=== PATIENT | female | born 1970 | race Caucasian/White ===

== ENCOUNTER → 2018-10-16 | Outpatient (CLI) | payer OTHER ==
[2015-09-25 11:00] VITALS: BP 120/70
[~2018-10-16] MED LIST: ALPR0.254 PO; BUPR300T4 PO; CYCL10TA2 PO; DOCU-109 PO; HYDR-2765 PO; IBUP-1060 PO; LORA1TAB PO; MULT1CAP15 PO; NORE-81 PO; ONDA4TAB11 PO; OXYC-411 PO; OXYC1TAB15 PO; SUMA50TA3 PO; TRAZ-85 PO
--- NOTE | 2018-10-16 10:28 | KCIC ---
MRI Lumbar Spine without contrast History: Low back pain, right lower extremity weakness, symptoms since July 2018 Technique: Multiplanar, multi sequential noncontrast MR imaging was performed of the lumbar spine. Comparison: September 07, 2015 Findings: There is again rudimentary intervertebral disc space at what is considered S1-S2 with the most inferior fully formed intervertebral disc space considered L5-S1 for this report. There is again mild degenerative disc disease at L4-5 and mild disc desiccation L5-S1 and L3-4 and very minimally at L2-3 unchanged. There is again posterior annular tear L5-S1. Conus terminates at L1. There is no significant marrow edema. Lumbar vertebral body stature and AP alignment are maintained. L2-L3: Spinal canal and neural foramina are adequate. L3-L4: There is again mild facet degenerative change. There is mild prominence of posterior epidural fat. There is again minimal disc osteophyte complex and bulge, near the descending right L4 nerve root without significant displacement, very mild narrowing of the far lateral recesses greater on the right. There is minimal narrowing of the inferior right neural foramen by bulge, left neural foramen adequate. L4-L5: There is again mild buckling of the ligamentum flavum. There is again minimal disc osteophyte complex and bulge. There is mild narrowing of the far lateral recesses bilaterally. There is again mild narrowing of the right neural foramen, left neural foramen adequate. L5-S1: Previously seen protrusion is somewhat more prominent with increased indentation upon the ventral thecal sac greater in the right lateral recess, contact of the descending right S1 nerve root and increased [id number] right lateral recess stenosis. Protrusion in the right lateral recess is estimated about 4 to 5 mm AP by 6 mm CC by about 12 mm transverse. Neural foramina are overall adequate. Impression: 1. Previously seen protrusion at L5-S1 is more prominent with increased indentation upon the ventral thecal sac in the right lateral recess and contact of the descending right S1 nerve root. There is minimal narrowing of the far lateral recesses bilaterally at L4-5 and to lesser degree at L3-4. There is again mild degenerative disc disease greatest at what is considered L4-5. Electronically signed by: Yao Bishop MD (10/16/2018 10:24 AM) [facility]
== END | disposition home or self-care (01) ==
LOC: KCIC MRI 09:23
PROVIDERS: ATTEND Internal Medicine
DX: M51.36 Other intervertebral disc degeneration, lumbar region (principal); M51.37 Other intervertebral disc degeneration, lumbosacral region; M48.07 Spinal stenosis, lumbosacral region; M25.78 Osteophyte, vertebrae
CPT/HCPCS: 72148

== ENCOUNTER → 2018-11-19 | Outpatient (CLI) | payer OTHER ==
[2015-09-25 11:00] VITALS: BP 120/70
[~2018-11-19] MED LIST changes: +AMIT50TA PO; +CETI10TA22 PO; +METH-38 PO; +MIRA50TA PO; +NAPR220C4 PO; +PRED2.5T PO; +PROP40TA PO; +RANI150T2 PO
[2018-11-19 16:38] LABS: BASO # 0.1 x10^3/uL (0.0-0.2); BASO % 1 % (0-3); EOS # 0.3 x10^3/uL (0.0-0.7); EOS % 5 % (0-3); HEMATOCRIT 38.9 % (36.0-47.0); LYMPH # 1.5 x10^3/uL (1.0-4.8); LYMPH % 24 % (24-48); MEAN CORPUSCULAR HEMOGLOBIN 30 pg (25-35); MEAN CORPUSCULAR HGB CONC 33 g/dL (31-37); MEAN CORPUSCULAR VOLUME 91 fL (79-100); MONO # 0.6 x10^3/uL (0.0-1.1); MONO % 10 % (0-9); NEUT # 3.8 x10^3uL (1.8-7.7); NEUT % 61 % (31-73); PLATELET COUNT 280 x10^3/uL (140-400); RED BLOOD COUNT 4.28 x10^6/uL (3.50-5.40); RED CELL DISTRIBUTION WIDTH 14.3 % (11.5-14.5); WHITE BLOOD COUNT 6.2 x10^3/uL (4.0-11.0)
[2018-11-19 16:59] LABS: ALBUMIN 3.7 g/dL (3.4-5.0); ALBUMIN/GLOBULIN RATIO 1.1 (1.0-1.7); CALCIUM 9.1 mg/dL (8.5-10.1); CREATININE 0.9 mg/dL (0.6-1.0); GFR 67.1; POTASSIUM 4.4 mmol/L (3.5-5.1); TOTAL BILIRUBIN 0.2 mg/dL (0.2-1.0); TOTAL PROTEIN 7.1 g/dL (6.4-8.2)
== END | disposition home or self-care (01) ==
LOC: SURGPAT 13:40
PROVIDERS: ATTEND Neurological Surgery
DX: Z01.818 Encounter for other preprocedural examination (principal); M51.16 Intervertebral disc disorders with radiculopathy, lumbar region
CPT/HCPCS: 36415; 80053; 85025; 87641

== ENCOUNTER 2018-11-29 07:12 | Day surgery (SDC) | payer OTHER ==
[~2018-11-29] VITALS: Ht 170.2 cm; Wt 73.5 kg
[~2018-11-29 07:12] MED LIST changes: +BACITRACIN 50,000 UNIT in IV NORMAL SALINE 1000ML BAG 1,000 ML IRR ONE; +BUPIVAC MPF-EPI 0.5%-1:200000 30 ML VIAL. ONE; +DEXAMETHASONE SOD PHOS 20 MG/5 ML VIAL. ONE; +GELATIN SPONGE SIZE 100. ONE; +HYDROmorphone 2 MG/ML VIAL IV PRN; +IV RINGERS,LACTATED 1000ML 1,000 ML IV SCH; +KETOROLAC 60 MG/2 ML INJ FOR OR. ONE; +LIDOCAINE 1% PF 2 ML VIAL. ID PRN; +LIDOCAINE 2% PF Vial for OR 5 ML VIAL. ONE; -METH-38 PO; +MORPHINE SULFATE 4 MG/ML VIAL. IV PRN; +ONDANSETRON PF 4 MG/2 ML VIAL. IV PRN; +ONDANSETRON PF 4 MG/2 ML VIAL. ONE; +PROCHLORPERAZINE 10 MG/2 ML VIAL. IV PRN; +PROPOFOL 20 ML IV ONE; +ROCURONIUM 50 MG/5 ML VIAL. ONE; +THROMBIN TOPICAL 20,000 UNIT SPRAY.SYRN KIT TP ONE; +VANCOMYCIN 1GM IVPB FOR OMNI 250 ML IV ONE; +fentaNYL PF VIAL 100 MCG/2 ML VIAL IV PRN
[2018-11-29] MEDS ORDERED: MIDAZOLAM HCL/PF 2 MG/2 ML VIAL. ONE (08:19)
[2018-11-29] MEDS ORDERED: fentaNYL PF VIAL 100 MCG/2 ML VIAL ONE ×3 (08:19→11:59)
[2018-11-29] MEDS ORDERED: PROPOFOL 50 ML IV ONE (08:21)
[2018-11-29] MEDS ORDERED: REMIFENTANIL 2 MG VIAL. IV ONE (08:21)
[2018-11-29] MEDS ORDERED: GLYCOPYRROLATE 1 MG/5 ML VIAL. ONE (09:43)
--- NOTE | 2018-11-29 09:47 | PREOP HP ---
DATE OF SERVICE: 11/29/2018 Aron Howard RN, dictating for Dr. Job Burleson. DATE OF SURGERY: 11/29/2018 HISTORY OF PRESENT ILLNESS: The patient is a pleasant 48-year-old who in 2014 underwent an ACDF and did well from that. Her current problem is low back pain and pain, which radiates into her right buttock, posterior lateral thigh and leg. This problem started in 07/2018. She said she twisted while standing and felt significant pop in her lower back and has had pain ever since. She describes a constant pain of 5/10. She has been taking prednisone for the last 2 months to help control it. She had a great deal of chiropractic treatment for this problem without significant benefit. PAST MEDICAL HISTORY: Headaches, migraines, head or neck injury, kidney stones, psychiatric care, tonsillitis. PAST SURGICAL HISTORY: Sinus surgery in 2002, tonsillectomy in 2002, bladder sling in 2013, tubal ligation in 2013, ACDF C6-C7 in 09/2015. FAMILY HISTORY: Cancer, CAD and migraine headaches. SOCIAL HISTORY: She is employed. . Exercises daily. Nonsmoker. Drinks alcohol 1-2 times per month. ALLERGIES: AMOXICILLIN. CURRENT MEDICATIONS: Percocet, Imitrex, bupropion, alprazolam, trazodone, multivitamin, Biofreeze and Tylenol. REVIEW OF SYSTEMS: A 12-point review of systems was obtained and is noncontributory except for that mentioned above. PHYSICAL EXAMINATION: NEUROSURGERY EXAMINATION: GENERAL APPEARANCE: Alert, pleasant, no acute distress. HEAD: Normocephalic, atraumatic. SKIN: Warm and dry. MUSCULOSKELETAL: Lumbar paraspinal muscle bulk is normal, restricted range of motion of the lumbar spine, [id number] tenderness of the lumbar spine with palpation, normal range of motion of the lower extremities bilaterally. EXTREMITIES: No clubbing, cyanosis or edema. NEUROLOGIC: Alert and oriented x 3, normal recent and remote memory, strength 4/5 in bilateral lower extremities, sensory was intact to light touch in bilateral lower extremities, reflexes were present and symmetric in lower extremities bilaterally, positive straight leg raising on the right that is relieved by Lasegue's maneuver, negative straight leg raise on the left, normal gait. IMAGING: Reviewed. I reviewed a lumbar MRI scan, it is from 10/2018. On that study, the previously seen disk protrusion at L5-S1 has become more prominent with increased compression of the thecal sac and the right lateral recess, displacing S1 nerve root. This was compared to 08/2015 study. ASSESSMENT: 1. Intervertebral disk disorders with radiculopathy, lumbosacral region. 2. Low back pain. PLAN: She has herniated lumbar disk with nerve root compression. I spoke with her about treatment options. She said that oral steroids temporarily helped her. She is pain becomes excruciating when she stops. She notes the chiropractic treatment has been of no benefit. She would like to have microsurgery. I did discuss the surgery with her. I spoke about the surgery and the risks involved. She understands. She would like to go ahead. We will make the arrangements. JOB BURLESON MD DR: BRIAN/troy JOB#: [id number] / [id number]
[2018-11-29] MEDS ORDERED: DESFLURANE 61 TO 120 MINUTES IH ONE (10:10)
--- NOTE | 2018-11-29 10:53 | DISCH ---
DISCHARGE INSTRUCTIONS Condition on Discharge Condition on Discharge: Stable Activity After Discharge Activity Instructions for Disc: Activity as tolerated, Avoid exertion Other activity instructions: no driving for a week Bathing Instructions: Shower-keep dressing dry Lifting Instructions after Dis: No heavy lifting, No pulling or pushing, Do not lift >10 pounds Driving Instructions after Dis: Do not drive Diet after Discharge Additional Diet Restrictions: Resume home diet Wound Incision Care Wound/Incision Care: Ice to area for comfort Other wound/incision instructi: may remove dressing in 48 hrs if dry then may shower, no soaking Contacting the after DC Call your doctor for: Concerns you may have Follow-Up Follow up with: Dr. Burleson's nurse in 2 weeks [phone] JESSENIA BURLESON MD Nov 29, 2018 10:53
--- NOTE | 2018-11-29 10:56 | OP ---
DATE OF SURGERY: 11/29/2018 PREOPERATIVE DIAGNOSIS: Herniated lumbar disc, L5-S1 right with right lumbar radiculopathy. POSTOPERATIVE DIAGNOSIS: Herniated lumbar disc, L5-S1 right with right lumbar radiculopathy. OPERATION PERFORMED: Hemilaminotomy and microdiscectomy L5-S1, right. The operation was done with EMG monitoring, fluoroscopy, microscopic dissection. SURGEON: Job Burleson M.D. RAILROAD WATCHMAN: YUNIER Newman assisted with the surgery. She assisted with the exposure, the microdiscectomy as well as the closure. OPERATIVE INDICATIONS: The patient is a very pleasant 48-year-old who developed intractable back and right leg pain, which worsened despite conservative measures. She received significant chiropractic treatment, which did not help. On imaging studies, there was a focal disc herniation L5-S1, which slowly had enlarged. She was very symptomatic and I recommended lumbar microsurgery. I spoke with her about the surgery, the risks, technique and expected postoperative course and she wished to go ahead. DESCRIPTION OF PROCEDURE: Following general endotracheal anesthesia, the patient was positioned prone on the Sundar table. Her lumbar region was prepped and draped in standard fashion. STEVE hose and AV impulse boots were applied for DVT prophylaxis. A microscope was draped. Fluoroscopy was draped and brought in the field. Monitoring was established. Vancomycin 1 gram was given prior to surgery. Using fluoroscopic guidance, a midline incision was made directly over the L5-S1 interspace. I dissected down through the skin and subcutaneous tissue, reflected the paraspinal muscles and placed a [place] micro disc retractor. I brought in the microscope and the remainder of the surgery was done with the microscope using microscopic technique. I used a high speed air drill and burred down a generous hemilaminotomy. I trimmed away thickened ligamentum flavum, exposed the dura and the exiting S1 root, which was lifted and compressed by a focal disc herniation. I gently the nerve from the underlying ligament and disc, retracted the nerve gently medially and incised the ligament and annulus with a #11 blade. I teased back and removed a very large fragment, which markedly decompressed the region. I then used pituitary rongeurs to enter the disc space and performed a generous discectomy to fully decompress the region. I explored carefully. There were no retained fragments. The S1 root was very free as was the dura. Hemostasis was excellent throughout. I irrigated copiously, removed the retractor after I explored and assured myself that we had an excellent discectomy and the root was free. I did obtain hemostasis in the muscle, irrigated again and then closed with absorbable sutures. The skin was closed with a 4-0 subcuticular stitch. The operation went very well and the patient awakened uneventfully. I was quite pleased with the surgery. JOB BURLESON MD DR: BRIAN/troy JOB#: [id number] / [id number] OSIEL
[2018-11-29] MEDS ORDERED: DOCU-109 PO (10:57)
[2018-11-29] MEDS ORDERED: METH-38 PO (10:57)
[2018-11-29] MEDS: fentaNYL PF VIAL 100 MCG/2 ML VIAL IV PRN ×4 (11:24→12:39)
[2018-11-29] MEDS ORDERED: oxyCODONE/APAP 5/325 1 TAB TABLET PO ONE ×2 (12:00)
[2018-11-29 12:33] VITALS: BP 114/72
--- NOTE | 2018-11-30 14:09 | PATHOLOGY ---
[facility] Accession Number: [id number] . 01 Material submitted: . LUMBAR DISC AND DECOMPRESSION . 01 Clinical history: . Lumbar herniated disc with radiculopathy. . 02 Diagnosis: "Lumbar disc and decompression", removal: - Fragments of fibrocartilage with degenerative changes. - Scant fragments of unremarkable fibrous tissue and skeletal muscle. (SKM:carl; 11/30/2018) QMS/11/30/2018 . 02 Electronically signed: . Keyur Santana MD, Pathologist NPI- [id number] . 01 Gross description: . Received in formalin labeled "France Keller, lumbar disc and decompression" is a 4.6 x 3.5 x 0.6 cm aggregate of trent-white friable soft tissue fragments. Radio Interference Supervisor sections are submitted in cassette A1. ([facility]; 11/29/2018) SYC/SYC . 02 Pathologist provided ICD-10: M51.36 . 02 CPT . 829307 Specimen Comment: A courtesy copy of this report has been sent to Specimen Comment: [phone], . Specimen Comment: Report sent to / DR LEWIS Performed at: 01 [facility] [address], [place], [place] [id number] MD David Palmer MD Phone: [phone] Performed at: 02 [facility] [address] [place], [place] [id number] MD Efrem Tavera MD Phone: [phone]
== END 2018-11-29 13:40 | disposition home or self-care (01) ==
LOC: SURG 07:12
PROVIDERS: ATTEND Neurological Surgery
DX: M51.16 Intervertebral disc disorders with radiculopathy, lumbar region (principal); Z88.1 Allergy status to other antibiotic agents; G43.909 Migraine, unspecified, not intractable, without status migrainosus; Z87.442 Personal history of urinary calculi; Z98.890 Other specified postprocedural states; Z98.51 Tubal ligation status; Z98.1 Arthrodesis status; Z82.49 Family history of ischemic heart disease and other diseases of the circulatory system; Z82.0 Family history of epilepsy and other diseases of the nervous system; Z72.89 Other problems related to lifestyle; Z79.899 Other long term (current) drug therapy
CPT/HCPCS: 63030; 88304; 97162; 97530; A7015; G8978; G8979; G8980; J1100; J1885; J2001; J2250; J2405; J2704; J3010; J3370; J3490; J7030; J7120; 76000

== ENCOUNTER → 2019-01-04 | Outpatient (CLI) | payer OTHER ==
[~2019-01-04] MED LIST changes: -BACITRACIN 50,000 UNIT in IV NORMAL SALINE 1000ML BAG 1,000 ML IRR ONE; +BACL10TA PO; -BUPIVAC MPF-EPI 0.5%-1:200000 30 ML VIAL. ONE; -DEXAMETHASONE SOD PHOS 20 MG/5 ML VIAL. ONE; +DICY20TA3 PO; +FLUT16SP NS; -GELATIN SPONGE SIZE 100. ONE; -HYDROmorphone 2 MG/ML VIAL IV PRN; -IV RINGERS,LACTATED 1000ML 1,000 ML IV SCH; -KETOROLAC 60 MG/2 ML INJ FOR OR. ONE; -LIDOCAINE 1% PF 2 ML VIAL. ID PRN; -LIDOCAINE 2% PF Vial for OR 5 ML VIAL. ONE; +METH-38 PO; -MORPHINE SULFATE 4 MG/ML VIAL. IV PRN; -ONDANSETRON PF 4 MG/2 ML VIAL. IV PRN; -ONDANSETRON PF 4 MG/2 ML VIAL. ONE; -PROCHLORPERAZINE 10 MG/2 ML VIAL. IV PRN; -PROPOFOL 20 ML IV ONE; -ROCURONIUM 50 MG/5 ML VIAL. ONE; -THROMBIN TOPICAL 20,000 UNIT SPRAY.SYRN KIT TP ONE; +TRAZ-118 PO; -TRAZ-85 PO; -VANCOMYCIN 1GM IVPB FOR OMNI 250 ML IV ONE; +[UNRECOGNIZED DRUG - OTHER]; -fentaNYL PF VIAL 100 MCG/2 ML VIAL IV PRN
--- NOTE | 2019-01-04 09:52 | RAD ---
MR#: [id number] Date of Study: 01/04/2019 Ordering Physician: VANE JUNIOR Referring Physician: ANDREA RUIZ Tech: APPROVED REPORT Test Type: Exercise Stress Nurse/Tech: Milena Zarate R.N. Test Indications: exertional jason Cardiac History: family hx Medications: see ehr Medical History: see ehr Resting ECG: sr Resting Heart Rate: 81 bpm Resting Blood Pressure: 106/50mmHg Pretest Chest Pain: No chest pain Nurse/Tech Notes lungs cta, heart tones regular Consent: The procedure was explained to the patient in lay terms. Informed consent was witnessed. Gerard eout was entered into [facility]. History and Stress Test performed by Gisele Adame RT (R) (N) POST EXERCISE Reason for Termination: Reached target heart rate Target HR: Yes Max HR: 157 bpm 91% of Maximum Predicted HR: 173 bpm Exercise duration: 9:34 min:sec, 4 Stage Exercise capacity: 13.4METs Max Blood Pressure: 138/72mmHg Blood Pressure response to exercise: Normal blood pressure response during stress. Heart Rate response to exercise: normal Chest Pain: No. Arrhythmia: No. ST Change: No. INTERPRETATION Stress EKG Conclusion: Baseline EKG showed sinus rhythm. No ischemic changes at peak stress. No arr hythmias. Conclusion 1. Treadmill exercise stress electrocardiogram did not show any diagnostic evidence of ischemia. 2. Patient had good activity tolerance. Signed by : Bob Holt, Electronically Approved : 01/04/2019 09:51:47
== END | disposition home or self-care (01) ==
LOC: NM 08:02
PROVIDERS: ATTEND Internal Medicine Cardiovascular Disease
DX: R06.09 Other forms of dyspnea (principal); Z88.1 Allergy status to other antibiotic agents
CPT/HCPCS: 93017

== ENCOUNTER → 2019-01-30 | Outpatient (CLI) | payer OTHER ==
--- NOTE | 2019-01-30 12:00 | KCIC ---
MRI of the cervical spine without contrast 01/30/2019 CLINICAL HISTORY: Chronic neck pain. Right arm numbness. History of previous cervical spine surgery. TECHNIQUE: Unenhanced T1-weighted, T2-weighted and inversion recovery sagittal and gradient echo and T2-weighted axial images of the cervical spine were obtained. FINDINGS: Comparison is made to radiographs of the cervical spine performed concurrently with this examination. Minimal lateral curvature of the cervical spine is seen convex to the right. There is slight reversal of normal cervical lordosis. The patient is post anterior fusion using an anterior plate, bone screws and bone graft material at C6-7. Degenerative signal changes are seen involving the remaining discs of the cervical spine. The marrow signal of the visualized bony structures is within normal limits. No area of abnormal signal intensity is seen involving the cervical spinal cord. At the C2-3 and C3-4 disc spaces there are minimal generalized disc bulges. Degenerative changes are seen involving the uncovertebral and facet joints bilaterally. These findings do not result in significant central spinal canal or neural foraminal stenosis. At the C4-5 disc space there is a mild generalized disc bulge. Degenerative changes are seen involving the uncovertebral and facet joints, left greater than right. These findings do not result in significant central spinal canal stenosis. Mild left neural foraminal stenosis is seen. The right neural foramen is patent. At the C5-6 disc space there is a mild generalized disc bulge. Degenerative changes are seen involving the uncovertebral and facet joints bilaterally. These findings do not result in significant central spinal canal or neural foraminal stenosis. At the C6-7 level degenerative changes are seen involving the uncovertebral and facet joints bilaterally. These findings do not result in significant central spinal canal stenosis. Mild bilateral neural foraminal stenosis is seen. At the C7-T1 disc space there is a minimal generalized disc bulge. Degenerative changes are seen involving the facet joints bilaterally. These findings do not result in significant central spinal canal or neural foraminal stenosis. IMPRESSION: 1. Post anterior fusion at C6-7. 2. Degenerative changes are seen throughout the cervical spine. These findings do not result in significant central spinal canal stenosis at any level. Mild left neural foraminal stenosis is seen at C4-5. Mild bilateral neural foraminal stenosis is seen at C6-7. Electronically signed by: Brian Danielle MD (01/30/2019 11:57 AM) [facility]
--- NOTE | 2019-01-30 13:55 | KCIC ---
2 views of the cervical spine without comparison for cervical radiculopathy. FINDINGS: There is straightening of the normal cervical lordosis. There is prior ACDF of C6-7. There is 2 mm anterolisthesis of C4 on C5 and C5 on C6. Prevertebral soft tissues are grossly unremarkable. No fracture or acute osseous abnormality is seen. IMPRESSION: 1. Postsurgical and degenerative changes of the cervical spine as described. No acute osseous abnormality. Electronically signed by: Edu Clarke MD (01/30/2019 1:52 PM) [id number]
== END | disposition home or self-care (01) ==
LOC: KCIC MRI 08:31
PROVIDERS: ATTEND Neurological Surgery
DX: M47.22 Other spondylosis with radiculopathy, cervical region (principal); M48.02 Spinal stenosis, cervical region; M40.292 Other kyphosis, cervical region; M50.123 Cervical disc disorder at C6-C7 level with radiculopathy; M47.814 Spondylosis without myelopathy or radiculopathy, thoracic region; M51.24 Other intervertebral disc displacement, thoracic region
CPT/HCPCS: 72040; 72141

== ENCOUNTER → 2019-02-14 | Outpatient (CLI) | payer OTHER ==
--- NOTE | 2019-02-14 17:54 | RAD ---
EXAM: Lumbar spine, flexion and extension. HISTORY: Pain. COMPARISON: 09/07/2015 FINDINGS: Lateral neutral, flexion and extension views of the lumbar spine are obtained. There is a transitional lumbosacral segment. This is considered a partially lumbarized S1 segment with rudimentary S1-S2 disc for this dictation. There is no significant listhesis or abnormal motion between flexion and extension. There is mild endplate remodeling and facet arthropathy at L4-5 and L5-S1. IMPRESSION: 1. Transitional lumbosacral segment, a normal variant. 2. Multilevel degenerative change, primarily at L4-L5 and L5-S1. Electronically signed by: Gisele Pierce MD (02/14/2019 5:51 PM) [facility]
== END | disposition home or self-care (01) ==
LOC: RAD 14:25
PROVIDERS: ATTEND Neurological Surgery
DX: M47.897 Other spondylosis, lumbosacral region (principal); M12.88 Other specific arthropathies, not elsewhere classified, other specified site; M53.87 Other specified dorsopathies, lumbosacral region
CPT/HCPCS: 72100

== ENCOUNTER → 2019-02-21 | Outpatient (CLI) | payer OTHER ==
[~2019-02-21] MED LIST changes: +GADOBUTROL 7.5 MMOL/7.5 ML VIAL IV ONE
--- NOTE | 2019-02-21 13:53 | KCIC ---
MRI Lumbar Spine without and with contrast History: Lumbar radiculopathy, previous surgery, low back pain, right leg pain Technique: Multiplanar, multi sequential pre and postcontrast MR imaging was performed of the lumbar spine. Comparison: October 16, 2018 Findings: There is mild motion. There is again rudimentary intervertebral disc space at what is considered S1-S2 with the most inferior fully formed intervertebral disc space considered L5-S1. There is again mild degenerative disc disease at L4-5 and mild disc desiccation L5-S1 and L3-4. There is again posterior annular tear L5-S1. There is trace posterior, superior S1 endplate edema likely reactive/degenerative in etiology. AP alignment is maintained. Conus terminates near L1. There is no nodular enhancement conus or cauda equina, no enhancement in the intervertebral disc spaces. Lumbar vertebral body stature is unchanged. L1-L2: This level was not included on the axial images. Neural foramina and spinal canal are adequate. L2-L3: This level was not included on the axial images. Neural foramina and spinal canal are adequate. L3-L4: There is again mild bilateral facet hypertrophic change. There is again minimal disc osteophyte complex and bulge. There is similar very mild narrowing of the far lateral recesses greater on the right. Neural foramina are not significantly narrowed. L4-L5: There is again mild buckling of the ligamentum flavum and minimal disc osteophyte complex and bulge. There is minimal facet degenerative change. There is again mild narrowing of the far lateral recesses bilaterally. Neural foramina are not significantly narrowed. L5-S1: There has been interval right laminectomy. There is now focus of centrally nonenhancing signal abnormality in the right lateral recess about 0.6 cm transverse by about 0.7 cm CC by 0.4 cm AP with some surrounding enhancement, seen just posterior to the annular margin, results in some mass effect upon the descending right S1 nerve root which is poorly distinguished in this region. There is is internally hyperintense on the T2 and STIR sequences. Neural foramina are adequate. Impression: 1. As per the previous report, there is a rudimentary intervertebral disc space at what is considered S1-S2 with most inferior fully formed intervertebral disc space considered L5-S1. There has been right L5-S1 laminectomy. There is now centrally nonenhancing signal abnormality in the right lateral recess at the L5-S1 level, indistinguishable from the descending right S1 nerve root in this region. While findings could be a component of segmentally edematous and dilated descending right S1 nerve root from neuritis, findings may be due to underlying small focal fluid collection or edematous disc fragment. 2. There is again mild degenerative disc disease greatest L4-5. 3. There is no new significant lumbar neural foramina compromise. Electronically signed by: Yao Bishop MD (02/21/2019 1:50 PM) [email or web address]
== END | disposition home or self-care (01) ==
LOC: KCIC MRI 12:16
PROVIDERS: ATTEND Neurological Surgery
DX: M51.16 Intervertebral disc disorders with radiculopathy, lumbar region (principal); M51.37 Other intervertebral disc degeneration, lumbosacral region; M47.26 Other spondylosis with radiculopathy, lumbar region; M25.78 Osteophyte, vertebrae
CPT/HCPCS: 72158; A9585

== ENCOUNTER → 2019-03-11 | Outpatient (CLI) | payer OTHER ==
[~2019-03-11] MED LIST changes: +BUPIVACAINE MPF 0.25% 10 ML VIAL. ONE; -GADOBUTROL 7.5 MMOL/7.5 ML VIAL IV ONE; +methylPREDNISolone ACETATE 40 MG/ML VIAL. ONE
--- NOTE | 2019-03-12 03:53 | PAIN ---
DATE OF SERVICE: 03/11/2019 INITIAL CONSULTATION FOR PAIN CLINIC CHIEF COMPLAINT: Low back and right lower extremity pain. SECONDARY COMPLAINT: Neck and bilateral upper extremity and shoulder pain. HISTORY OF PRESENT ILLNESS: The patient is a 48-year-old female who presents with history of pain in the low back and right leg for about 4 months as well as in the neck and shoulders for about 6 months. The patient reports she is status post L5-S1 diskectomy which was helpful and this was in 11/2018 but the pain returned fairly quickly after about a month in the right low back and right lower extremity, posterior gluteus, posterior thigh, posterior calf, into the foot and lateral aspect of the foot as well as the toes. The patient reports it is getting her up about once or twice at night, does not affect her bowel or bladder control significantly, but she does have some increased urgency, but no loss of continence from the pain that she is aware of. The patient has been using a transport chair to ambulate occasionally and does affect her ability to walk fairly significantly. The patient reports she has had physical therapy not significantly improving the pain and also some chiropractic treatment and many treatments over the years. She is still doing some stretching and strengthening on her own with the exercises, but still significant pain in the back and right leg. The patient did see her neurosurgeon recently who is recommending some conservative therapies, to do another MRI scan of the lumbar spine, which is showing rudimentary intervertebral disk space at S1-S2, previous right L5-S1 laminectomy, now nonenhancing signal abnormality in the right lateral recess at L5-S1 level with potential component of significantly edematous and dilated descending right S1 nerve root from neuritis or underlying small focal fluid collection or edematous disk fragment and some mild degenerative disk disease at L4-L5 as well. The patient reports her disability rating from 0 to 10, 10 being the worst, as 6 with family and home responsibilities, recreation, social activity and occupation as well as self-care, especially with walking and standing, 5 with sexual behavior and 3 with life support activities. The patient has no loss of motor function, but significant fatigability of the right leg and it does get very tired to where she is using assistive devices to ambulate at times, but not every day. PAST MEDICAL HISTORY: Significant for irritable bowel syndrome, cigarette smoking, quit 6 years ago, arthritis, depression, anxiety. PREVIOUS SURGERIES: Include laminectomy L5-S1 in 11/2018, previous tonsillectomy, sinus surgery in 2002, bladder sling in 2013, tubal ligation in 2013, cervical fusion in 2014. CURRENT MEDICATIONS: Include trazodone, Zyrtec, Loestrin, Imitrex, alprazolam, dicyclomine, baclofen, fluticasone, propranolol, amitriptyline, ranitidine and mirabegron. ALLERGIES: The patient has no known drug allergies. FAMILY HISTORY: Significant for Parkinson's disease and heart disease. SOCIAL HISTORY: The patient drinks alcohol about 1 drink a month. Does not smoke, quit many years ago. 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 REVIEW OF SYSTEMS: The patient's review of systems is positive for those items mentioned in history of present illness. All systems reviewed are negative. It is complete, full and well documented on the patient's chart. PHYSICAL EXAMINATION: VITAL SIGNS: The patient's blood pressure is 111/78, pulse 68, respirations 16, temperature 98.2 degrees Fahrenheit, height is 5 feet 7 inches, weight is 161 pounds. GENERAL: The patient is awake, alert, oriented, appropriate, very pleasant demeanor. HEENT: Shows normocephalic, atraumatic. Extraocular movements are intact and symmetrical. Oral cavity: Mucous membranes moist and pink. Dentition is intact. NECK: Shows anterior throat supple without palpable lymphadenopathy noted. Swallow reflex symmetrical. CHEST: Shows normal on inspection. Breath sounds clear to auscultation bilaterally. HEART: Shows S1, S2 clear. No murmurs auscultated. ABDOMEN: Soft, nontender, nondistended. No palpable organomegaly is noted. No rebound or guarding demonstrated. BACK: Shows spine grossly in the midline. Normal-appearing thoracic kyphosis and lumbar third curvature and cervical lordotic curvature. Cervical paraspinous muscle shows symmetrical on inspection; on palpation shows some moderate tenderness diffusely bilaterally, but only diffusely and with some moderate tenderness and trigger point areas actually in the superior medial trapezius, inferior cervical paraspinous musculature as well as the upper thoracic paraspinous muscles, worse on the left than the right and very firm, very tender, very rope-like musculature on the left side compared to the right, but several on the right side as well in the cervical distribution as well as the trapezius and thoracic paraspinous musculature in the superior aspect, very firm rope-like without significant radiation. The patient has good rotational motion of cervical spine, both laterally greater than 45 degrees and closer to 90 degrees as well as full extension and full flexion without exacerbation of pain. The patient's lower back shows lumbar paraspinous musculature is symmetrical without evidence of atrophy or hypertrophy. No tenderness over the spinous process, sacrum or sacroiliac regions. No trigger points in this region. The patient has good rotational motion of lumbar spine, both laterally greater than 10 degrees right and left as well as extension greater than 10 degrees, forward flexion 45 degrees without pain reported. EXTREMITIES: Lower extremities show deep tendon reflexes at 2+ in the patellar, 1+ tendo-calcaneus tendons. Motor exam is strong with 5/5 dorsiflexion, extension on the left and 4/5 on the right. Peripheral pulses are 1+ posterior tibia. No peripheral edema is noted bilaterally. Lower extremities are warm and dry to touch, equal in color and appearance. She does have positive straight leg raise on the right at about 40 degrees, left side is negative. Gaenslen's and Herve's maneuvers are negative bilaterally. SKIN: Warm and dry, good turgor. No edema. No sores, rashes, or bruises throughout. The patient is able to stand, stand on her toes without difficulty or loss of balance, walks with a normal-appearing gait for short distance in the office today, not using any assistive devices with her today such as canes or walkers. IMPRESSION: This is a 48-year-old female with: 1. Approximately 4-month history of increasing pain, low back, right lower extremity and about 6-month history of pain in the upper neck and shoulders and upper back consistent with trigger point. Etiology of pain in the neck and shoulders and radicular pain in the low back and right lower extremity following a L5-S1 dermatomal distribution. 2. MRI scan of lumbar spine as noted. 3. Arthritis. PLAN: Options were discussed with the patient including conservative medical management, physical therapy, interventional techniques and she is already doing conservative therapies and has done physical therapy and continues to do the exercises. She would like to pursue interventional techniques. We discussed both the trigger point injections of the cervical paraspinous musculature, trapezius musculature and the thoracic paraspinous muscles as well as lumbar epidural steroid injection at L5-S1 level for her L5-S1 dermatomal distribution of radiculopathy in the right lower extremity. She would like to pursue each of these. We will wait for preauthorization with her lumbar radiculopathy for lumbar epidural steroid injection at the L5-S1 level in a translaminar approach; however, we will proceed with trigger point injections today as she does not require any preauthorization for that. She would like to proceed. We discussed the procedure in great detail. Risks were then discussed including, but not limited to bleeding, infection, possibility of intravascular injection sequelae, spread of local anesthetic and numbness, pneumothorax, side effects of steroid medication and poor results regarding pain control. The patient understands and wished to proceed. The patient will return to clinic in approximately 2 weeks for followup. We will plan on lumbar epidural steroid injection on her return. DIAGNOSIS: Myofascial pain. PROCEDURE: Trigger point injections of the bilateral cervical paraspinous musculature, bilateral trapezius musculature, bilateral thoracic paraspinous musculature under sterile prep and drape using local anesthetic. MEDICATION INJECTED: Total of 10 mL of 0.25% bupivacaine and a total of 40 mg Depo-Medrol after negative aspiration at each injection site. CONDITION AT DISCHARGE: Stable. The patient tolerated the procedure well, had no complications. CAROL EDWARDS MD DR: REX/troy JOB#: [id number] / [id number]
== END ==
LOC: PNCL 07:37
PROVIDERS: ATTEND Anesthesiology
DX: M79.18 Myalgia, other site (principal); M54.5 Low back pain; M54.2 Cervicalgia; M79.661 Pain in right lower leg; M25.512 Pain in left shoulder; M25.511 Pain in right shoulder; F41.9 Anxiety disorder, unspecified; M19.90 Unspecified osteoarthritis, unspecified site; F32.9 Major depressive disorder, single episode, unspecified; Z87.891 Personal history of nicotine dependence; Z98.51 Tubal ligation status; Z79.899 Other long term (current) drug therapy; Z98.890 Other specified postprocedural states
CPT/HCPCS: 20553; J1030; J3490

== ENCOUNTER → 2019-03-12 | Outpatient (CLI) | payer OTHER ==
[~2019-03-12] MED LIST changes: -BUPIVACAINE MPF 0.25% 10 ML VIAL. ONE; +IOHEXOL 240 MG/ML 50ML VIAL. PO ONE; +IOHEXOL 300 MG/ML 100ML VIAL. IV ONE; -methylPREDNISolone ACETATE 40 MG/ML VIAL. ONE
--- NOTE | 2019-03-12 11:04 | RAD ---
Examination: CT of the abdomen pelvis without and with IV contrast HISTORY: History of right lower quadrant abdominal pain, gross hematuria COMPARISON: None available TECHNIQUE: Axial CT images of the abdomen pelvis were performed without and with IV contrast. Coronal and sagittal reformats are performed Exposure: One or more of the following individualized dose reduction techniques were utilized for this examination: 1. Automated exposure control 2. Adjustment of the mA and/or kV according to patient size 3. Use of iterative reconstruction technique FINDINGS: The bibasilar lungs are clear. No evidence of free air identified in the abdomen. The visualized liver, spleen, adrenals grossly appears unremarkable. The stomach is mildly distended. The visualized pancreas grossly appears unremarkable. The small bowel is nondilated. Feces and gas noted in the colon. Punctate 1 mm calculi identified in the left kidney. No evidence of hydronephrosis. No evidence of renal mass identified. Urinary bladder is mildly distended. Caliber of the aorta grossly appears unremarkable. No evidence of lytic bony destructive lesion. IMPRESSION: 1. Punctate 1 mm calculi identified in the left kidney no evidence of hydronephrosis. 2. No evidence of renal mass. Electronically signed by: Flex Ward MD (03/12/2019 11:01 AM) [id number]
== END | disposition home or self-care (01) ==
LOC: CT 09:39
PROVIDERS: ATTEND Internal Medicine
DX: N20.0 Calculus of kidney (principal); K31.89 Other diseases of stomach and duodenum
CPT/HCPCS: 74178; Q9966; Q9967

== ENCOUNTER → 2019-03-25 | Outpatient (CLI) | payer OTHER ==
[~2019-03-25] MED LIST changes: +IOHEXOL 180 MG/ML 10 ML VIAL. ONE; -IOHEXOL 240 MG/ML 50ML VIAL. PO ONE; -IOHEXOL 300 MG/ML 100ML VIAL. IV ONE; +methylPREDNISolone ACETATE 40 MG/ML VIAL. ONE; +methylPREDNISolone ACETATE 80 MG/ML VIAL. ONE
--- NOTE | 2019-03-25 18:48 | PAIN ---
DATE OF SERVICE: 03/25/2019 DIAGNOSES: Lumbar radiculopathy with lumbar degenerative disk disease and post-lumbar laminectomy syndrome. HISTORY OF PRESENT ILLNESS: The patient is a 48-year-old female who returns for followup status post initial evaluation, trigger point injections and preauthorization for lumbar epidural steroid injection. The patient reports the trigger point injections helped significantly about 30% in the neck and shoulders. Main complaint is low back and right lower extremity pain, posterior gluteus, posterior thigh, posterior calf into the foot, radiating, shooting and burning. The patient describes it as aching and tight across the back and shooting and radiating into the right leg. She reports it as an 8 on a scale of 10 at its worst in the past week, 6 on average, 3 at its least and is a 6 today. The patient reports no new motor or sensory deficits, no new bowel or bladder incontinence or other complaints. PHYSICAL EXAMINATION: VITAL SIGNS: The patient's blood pressure 118/73, pulse 93, respirations 16, temperature 98.3 degrees Fahrenheit. Weight 159 pounds. GENERAL: The patient is awake, alert, oriented, appropriate, very pleasant demeanor. HEENT: Normocephalic, atraumatic. Extraocular muscles are intact and symmetrical. Oral cavity, mucous membranes are moist and pink. Dentition is intact. NECK: Shows anterior throat supple without palpable lymphadenopathy noted. Swallow reflex symmetrical. CHEST: Shows normal on inspection. Breath sounds clear to auscultation bilaterally. HEART: Shows S1, S2 clear. No murmurs auscultated. ABDOMEN: Soft, nontender, nondistended. No palpable organomegaly is noted. No rebound or guarding demonstrated. BACK: Shows spine grossly in the midline, normal appearing thoracic kyphosis and lumbar lordotic curvature. Lumbar paraspinous muscle shows symmetrical on inspection, with palpation shows some moderate tenderness diffusely bilaterally, but only diffusely without radiation. EXTREMITIES: Lower extremities show deep tendon reflexes 2+ in patellar and 1+ tendo calcaneus tendons. Motor exam is 5/5 on the left and 4/5 on the right with dorsiflexion, extension, quadriceps and hamstring flexion. Peripheral pulses are 1+ posterior tibia. No peripheral edema is noted bilaterally. Options were discussed with the patient. The patient's old chart was reviewed as her current medication regimen updated. Current review of systems updated today as well. We will proceed with a lumbar epidural steroid injection today with fluoroscopic guidance. Risks were again discussed including, but not limited to bleeding, infection, possibility of epidural hematoma, subsequent neurologic compromise, dural puncture headaches, spinal cord and/or nerve damage, side effects of steroid medication and poor results regarding pain control. The patient understands and wished to proceed. The patient will return to clinic in approximately 2 weeks for followup, was counseled on return appointment, activity level and side effects to be aware of. DIAGNOSIS: Lumbar radiculopathy with lumbar degenerative disk disease. PROCEDURE: Lumbar epidural steroid injection, translaminar approach at L5-S1 level using C-arm fluoroscopic guidance under sterile prep and drape using local anesthetic. MEDICATION INJECTED: A total of 120 mg Depo-Medrol plus 10 mL of preservative-free normal saline and 2 mL of Isovue for contrast. CONDITION AT DISCHARGE: Stable. The patient tolerated the procedure well, had no complications. CAROL EDWARDS MD DR: REX/troy JOB#: [id number] / [id number]
== END ==
LOC: PNCL 08:03
PROVIDERS: ATTEND Anesthesiology
DX: M51.16 Intervertebral disc disorders with radiculopathy, lumbar region (principal); M96.1 Postlaminectomy syndrome, not elsewhere classified
CPT/HCPCS: 62323; J1030; J1040; Q9965

== ENCOUNTER → 2019-04-08 | Outpatient (CLI) | payer OTHER ==
[~2019-04-08] MED LIST changes: +BUPIVACAINE MPF 0.25% 10 ML VIAL. ONE; -IOHEXOL 180 MG/ML 10 ML VIAL. ONE; -methylPREDNISolone ACETATE 80 MG/ML VIAL. ONE
--- NOTE | 2019-04-08 14:22 | PAIN ---
DATE OF SERVICE: 04/08/2019 PROGRESS NOTE FOR PAIN CLINIC DIAGNOSES: 1. Lumbar radiculopathy with lumbar degenerative disk disease and lumbar post-laminectomy syndrome. 2. Myofascial pain. HISTORY OF PRESENT ILLNESS: The patient is a 48-year-old female who returns for followup status post lumbar epidural steroid injection with about a 75% improvement initially, now about 50% improvement in the low back and the right lower extremity. The patient reports it is radiating into the posterior gluteus, posterior thigh, posterior calf, but much improved, has been increasing her activity with greater distance walking and work activities, household activities, she has been remodeling some of the outside of the house with much greater ease and comfort. The patient reports also some pain significant in the base of the neck and shoulders, worse on the right than the left. The patient reports her pain over the past week was 6 on a scale 10 at its worst, 5 on average, 4 at its least and is a 4 today. The patient reports aching, sharp, tight, also with radiating pain, shooting in a radicular fashion in the right leg and in L5-S1 dermatomal distribution. The patient reports it is better with sitting or lying down, does not awaken her from sleep at night. The patient reports no new motor or sensory deficits. No new bowel or bladder incontinence or other complaints. PHYSICAL EXAMINATION: VITAL SIGNS: The patient's blood pressure 116/68, pulse 81, respirations 16, temperature 98.9 degrees Fahrenheit, weight is 158 pounds. GENERAL: The patient is awake, alert, oriented, appropriate, very pleasant demeanor. HEENT: Head is normocephalic, atraumatic. Extraocular muscles are intact and symmetrical. Oral cavity: Mucous membranes are moist and pink. Dentition is intact. NECK: Shows anterior throat supple without palpable lymphadenopathy noted. Swallow reflex symmetrical. CHEST: Shows normal with inspection. Breath sounds are clear to auscultation bilaterally. HEART: Shows S1, S2 clear. No murmurs auscultated. ABDOMEN: Soft, nontender, nondistended. No palpable organomegaly is noted. No rebound or guarding demonstrated. BACK: Shows spine grossly in the midline, normal-appearing cervical lordotic curvature, thoracic kyphotic curvature and lumbar lordotic curvature. The patient's neck shows good rotational motion of cervical spine. With palpation shows some moderate tenderness diffusely bilaterally in the superior cervical paraspinous musculature as well as in the trapezius and in the thoracic paraspinous musculature, more on the right than left, very firm rope-like musculature, very firm, very tender with trigger point areas of musculature, which are significantly tender more in the right than the left, especially in the trapezius, medial and superior aspect of it and in the inferior aspect of the thoracic paraspinous musculature bilaterally without specific radiation. The patient's lumbar paraspinous muscles are moderately tender in the middle and lower distribution of paraspinous muscles, but only diffusely without radiation. The patient shows good rotational motion of both the cervical spine as well as lumbar spine. EXTREMITIES: Upper extremities show deep tendon reflexes 2+ in the biceps and triceps tendons. 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 Lower extremities show deep tendon reflexes 2+ in the patellar, 1+ tendo-calcaneus tendons. Motor exam is approximately 4 on a scale 5 on the right with dorsiflexion and extension, but 5/5 on the left. Peripheral pulses are 2+ radial, 1+ posterior tibia. No peripheral edema is noted. PLAN: Options were discussed with the patient. The patient's old chart was reviewed as her current medication regimen updated. Current review of systems updated today as well. We will proceed with a trigger point injection of the cervical paraspinous musculature, trapezius musculature and thoracic paraspinous musculature bilaterally. Risks were discussed including but not limited to bleeding, infection, possibility of intravascular injection sequelae, spread of local anesthetic and numbness, pneumothorax, side effects of steroid medication and poor results regarding pain control. The patient understands and wished to proceed. The patient will return to clinic in approximately 2 weeks for followup. She was counseled on return appointment, activity level and side effects to be aware of. We will plan on lumbar epidural steroid injection on her return. The patient did very well, but still with radicular pain returning in the right lower extremity at L5-S1 dermatomal distribution. We will plan on lumbar epidural steroid injection at the L5-S1 level on her return. DIAGNOSIS: Myofascial pain. PROCEDURE: Trigger point injections, bilateral trapezius, bilateral cervical paraspinous musculature and bilateral thoracic paraspinous musculature under sterile prep and drape using local anesthetic. MEDICATION INJECTED: A total of 40 mg Depo-Medrol plus total of 12 mL of 0.25% bupivacaine after negative aspiration at each injection site. CONDITION AT DISCHARGE: Stable. The patient tolerated procedure well, had no complications. CAROL EDWARDS MD DR: REX/troy JOB#: [id number] / [id number]
== END ==
LOC: PNCL 07:58
PROVIDERS: ATTEND Anesthesiology
DX: M79.18 Myalgia, other site (principal); M51.16 Intervertebral disc disorders with radiculopathy, lumbar region; M96.1 Postlaminectomy syndrome, not elsewhere classified
CPT/HCPCS: 20553; J1030; J3490

== ENCOUNTER → 2019-05-01 | Outpatient (CLI) | payer OTHER ==
[~2019-05-01] MED LIST changes: -BUPIVACAINE MPF 0.25% 10 ML VIAL. ONE; +IOHEXOL 180 MG/ML 10 ML VIAL. ONE; +PHEN37.53 PO; +methylPREDNISolone ACETATE 80 MG/ML VIAL. ONE
--- NOTE | 2019-05-02 02:10 | PAIN ---
DATE OF SERVICE: 05/01/2019 PROGRESS NOTE FOR PAIN CLINIC DIAGNOSES: Lumbar radiculopathy with lumbar degenerative disk disease and lumbar post-laminectomy syndrome. HISTORY OF PRESENT ILLNESS: The patient is a 48-year-old female who returns for followup status post lumbar epidural steroid injection x 1. Also, trigger point injections of the neck and upper back. The patient reports doing very well with each of these with about 50% improvement both. The patient reports the pain is returning now on the right leg and low back, though with extended walking and standing, otherwise doing fairly well. She has been increasing her activity with greater ease and comfort, sleeping better at night, does not awake her from sleep, has been doing work activities, household activities as well as recreational activities with much greater ease. The patient reports the pain is a 6 on a scale 10 at its worst in the past week, 5 on average, 5 at its least and is a 5 today. The patient reports it is aching, tight, shooting in the right lower extremity, posterior gluteus, posterior thigh in the low back, especially on the right hip. The patient reports no new motor or sensory deficits, no new bowel or bladder incontinence or other complaints. PHYSICAL EXAMINATION: VITAL SIGNS: The patient's blood pressure 120/84, pulse 81, respirations 18 and temperature 98.1 degrees Fahrenheit. Height is 5 feet 7 inches, weight 161 pounds. GENERAL: The patient is awake, alert, oriented, appropriate and very pleasant demeanor. HEENT: Head is normocephalic, atraumatic. Extraocular movements are intact and symmetrical. Oral cavity: Mucous membranes moist and pink. Dentition intact. NECK: Shows anterior throat supple without palpable lymphadenopathy noted. Swallow reflex is symmetrical. CHEST: Shows normal on inspection. Breath sounds are clear to auscultation bilaterally. HEART: Shows S1, S2 clear. No murmurs auscultated. ABDOMEN: Soft, nontender and nondistended. No palpable organomegaly is noted. No rebound or guarding demonstrated. BACK: Shows spine grossly in the midline. Normal appearing thoracic kyphosis, mild flattening of the lumbar lordotic curvature with well-healed surgical scar. Lumbar paraspinous muscle shows symmetrical on inspection and palpation shows some moderate tenderness diffusely, but only diffusely without radiation. EXTREMITIES: The patient's lower extremities show deep tendon reflexes at 2+ in the patellar, 1+ tendo-calcaneus tendons. Motor exam is approximately 4 on a scale of 5 with right dorsiflexion, extension 5/5 on the left. Peripheral pulses are 1+ posterior tibial. No peripheral edema is noted bilaterally. Options were discussed with the patient. The patient's old chart was reviewed as her current medication regimen updated. Current review of systems updated today as well. We will proceed with a lumbar epidural steroid injection second in the series today with fluoroscopic guidance. Risks were again discussed including, but not limited to bleeding, infection, possibility of epidural hematoma, subsequent neurological compromise, dural puncture, headaches, spinal cord and/or nerve damage, side effects of steroid medication and poor results regarding pain control. The patient understands and wished to proceed. The patient will return to clinic in approximately 2 weeks for followup, was counseled as to return appointment, activity level and side effects to be aware of. DIAGNOSES: Lumbar radiculopathy with lumbar degenerative disk disease and lumbar post-laminectomy syndrome. PROCEDURE: Lumbar epidural steroid injection, translaminar approach at L5-S1 level using C-arm fluoroscopic guidance under sterile prep and drape using local anesthetic. MEDICATION INJECTED: A total of 120 mg Depo-Medrol plus 10 mL of preservative-free normal saline and 2 mL of contrast. CONDITION ON DISCHARGE: Stable. The patient tolerated the procedure well and had no complications. CAROL EDWARDS MD DR: REX/troy JOB#: [id number] / [id number]
== END ==
LOC: PNCL 08:17
PROVIDERS: ATTEND Anesthesiology
DX: M51.16 Intervertebral disc disorders with radiculopathy, lumbar region (principal); M96.1 Postlaminectomy syndrome, not elsewhere classified
CPT/HCPCS: 62323; J1030; J1040; Q9965

== ENCOUNTER → 2019-05-22 | Outpatient (CLI) | payer OTHER ==
[~2019-05-22] MED LIST changes: +BUPIVACAINE MPF 0.25% 10 ML VIAL. ONE; -IOHEXOL 180 MG/ML 10 ML VIAL. ONE; -methylPREDNISolone ACETATE 80 MG/ML VIAL. ONE
--- NOTE | 2019-05-22 18:33 | PAIN ---
DATE OF SERVICE: 05/22/2019 PROGRESS NOTE FOR PAIN CLINIC DIAGNOSES: 1. Lumbar radiculopathy with lumbar degenerative disk disease, post-lumbar laminectomy syndrome. 2. Myofascial pain. HISTORY OF PRESENT ILLNESS: The patient is a 49-year-old female who returns for followup status post lumbar epidural steroid injections x 2 as well as trigger point injections. The patient was doing very well after last lumbar epidural steroid injection with about a 60% improvement overall. The patient reports it is currently staying at that level. It has been several weeks since her injection, but still with some pain in the low back and right lower extremity. The patient reports it is in the posterior gluteus, posterior thigh, posterior calf, but much improved. She has been increasing distance walking, changing positions, better sleeping at night. The patient reports it does not awaken her from sleep generally. She reports pain is 7 on a scale of 10 at its worst, 6 on average, 3 at its least. Her main complaint today, however, is neck and shoulder pain especially on the left side in the upper back and neck as she has had previously and responded well to trigger point injections. The patient reports it is tingling, aching, tight, and shooting in the neck as well. The patient reports no new motor or sensory deficits, no new bowel or bladder incontinence or other complaints. PHYSICAL EXAMINATION: VITAL SIGNS: The patient's blood pressure 112/79, pulse 99, respirations 16, temperature 99.1 degrees Fahrenheit. Weight is 157 pounds. GENERAL: The patient is awake, alert, oriented, appropriate, very pleasant demeanor. HEENT: Head shows normocephalic, atraumatic. Extraocular movements are intact and symmetrical. Oral cavity: Mucous membranes moist and pink. Dentition is intact. NECK: Shows anterior throat supple without palpable lymphadenopathy noted. Swallow reflex symmetrical. CHEST: Shows normal on inspection. Breath sounds clear to auscultation bilaterally. HEART: Shows S1, S2 clear. No murmurs auscultated. ABDOMEN: Soft, nontender, nondistended. No palpable organomegaly is noted. No rebound or guarding demonstrated. BACK: Shows spine grossly in the midline. Normal appearing thoracic kyphosis and lumbar lordotic curvature. Cervical paraspinous muscle shows symmetrical on inspection; with palpation shows some moderate tenderness diffusely; with palpation very firm rope-like musculature in the middle and lower aspect of the cervical paraspinous musculature bilaterally, worse on the left than the right, also into the left trapezius with very firm rope-like musculature consistent with trigger point areas. These are present on the right side as well, but not as severe, but certainly tender with palpation. This was true into the paraspinous musculature in the thoracic distribution as well, again worse on the left than the right with very firm rope-like musculature consistent with trigger point areas of muscle in the musculature without specific radiation. The patient's neck shows good rotational motion; however, both laterally as well as extension and flexion without significant difficulty. EXTREMITIES: Upper extremities show deep tendon reflexes at 2+ in the biceps and triceps tendons. Motor exam is strong with certified scrub tech strength rated at 5/5 as is bicep and tricep flexion. Lower extremities show deep tendon reflexes 2+ in the patellar, 1+ tendo-calcaneus tendons are equal. Motor exam is approximately 4 on a scale of 5 on the right and 5/5 on the left. Peripheral pulses are 1+ posterior tibial. No peripheral edema is noted in the lower extremities as well. Options were discussed with the patient. The patient's old chart was reviewed as her current medication regimen updated. Current review of systems updated today as well. We will proceed with trigger point injections of the bilateral cervical paraspinous musculature as well as trapezius and thoracic paraspinous musculature bilaterally and we will preauthorize the patient for a third lumbar epidural steroid injection. She still has clinical L5-S1 radiculopathy on the right lower extremity. The patient will continue with stretching and strengthening exercises and walking daily. Now, she has a new puppy that she is walking every night and we encouraged to maintain her activity and stretching as well as walking. DIAGNOSIS: Myofascial pain. PROCEDURE: Trigger point injections, bilateral cervical paraspinous musculature, bilateral trapezius, bilateral thoracic paraspinous musculature under sterile prep and drape using local anesthetic. MEDICATION INJECTED: A total of 10 mL of 0.25% bupivacaine and 40 mg of Depo-Medrol after negative aspiration at each injection site. Risks were discussed including, but not limited to bleeding, infection, possibility of intravascular injection sequelae, spread of local anesthetic and numbness, pneumothorax, side effects of steroid medication and poor results regarding pain control. CAROL EDWARDS MD DR: REX/troy JOB#: [id number] / [id number]
== END ==
LOC: PNCL 08:00
PROVIDERS: ATTEND Anesthesiology
DX: M79.18 Myalgia, other site (principal); M51.16 Intervertebral disc disorders with radiculopathy, lumbar region; M96.1 Postlaminectomy syndrome, not elsewhere classified
CPT/HCPCS: 20553; J1030; J3490

== ENCOUNTER → 2019-06-11 | Outpatient (CLI) | payer OTHER ==
[~2019-06-11] MED LIST changes: -BUPIVACAINE MPF 0.25% 10 ML VIAL. ONE; +IOHEXOL 180 MG/ML 10 ML VIAL. ONE; +methylPREDNISolone ACETATE 80 MG/ML VIAL. ONE
--- NOTE | 2019-06-11 09:14 | PAIN ---
DATE OF SERVICE: 06/11/2019 PROGRESS NOTE FOR PAIN CLINIC DIAGNOSES: Lumbar radiculopathy with lumbar degenerative disk disease and lumbar post-laminectomy syndrome and myofascial pain. HISTORY OF PRESENT ILLNESS: The patient is a 49-year-old female who returns for followup status post lumbar epidural steroid injection x 2 and trigger point injections. The patient reports trigger point injections were helpful in the upper back and neck and shoulder are doing much better. The patient reports main pain is in the low back, right lower extremity, and is waiting for preauthorization with her insurance provider for a third lumbar epidural steroid injection she has obtained that now and would like to proceed. The patient reports no new motor or sensory deficits, no new bowel or bladder incontinence or other complaints. Still significant pain across the low back and to right lower extremity, posterior gluteus, posterior thigh, posterior calf, radiating into the right foot as well. Describes the pain as aching, shooting, tingling, radiating, becoming unbearable at times, worse with walking, standing, changing positions, rates a 9 on a scale of 10 at its worst, 7 on average, 5 at its least and is a 7 today. The patient reports worse with walking, better with sitting or lying down, but does awaken her from sleep occasionally, but most nights does not. PHYSICAL EXAMINATION: VITAL SIGNS: Today, the patient's blood pressure is 112/66, pulse 79, respirations 18, temperature is 98.3 degrees Fahrenheit. Height is 5 feet 7 inches. Weight is 158 pounds. GENERAL: The patient is awake, alert, oriented, appropriate, very pleasant demeanor. HEENT: Shows normocephalic, atraumatic. Extraocular movements are intact and symmetrical. Oral cavity: Mucous membranes are moist and pink. Dentition is intact. NECK: Shows anterior throat supple without palpable lymphadenopathy noted. Swallow reflex symmetrical. CHEST: Shows normal on inspection. Breath sounds clear to auscultation bilaterally. HEART: Shows S1, S2 clear. No murmurs auscultated. ABDOMEN: Soft, nontender, nondistended. No palpable organomegaly is noted. No rebound or guarding demonstrated. BACK: Shows spine grossly in the midline. Normal appearing thoracic kyphosis. Some minor flattening of lumbar lordotic curvature. Well-healed surgical scarring noted. Lumbar paraspinous muscle shows symmetrical on inspection, on palpation shows some moderate tenderness diffusely bilaterally, but only diffusely without radiation. EXTREMITIES: The patient's lower extremities show deep tendon reflexes 2+ in the patellar, 1+ tendo-calcaneus tendons. Motor exam is approximately 4 on a scale of 5 on the right and 5/5 on the left dorsiflexion, extension, quadriceps and hamstring flexion. Peripheral pulses are 1+ posterior tibia, no peripheral edema is noted. Options were discussed with the patient. The patient's old chart was reviewed as her current medication regimen updated. Current review of systems updated today as well. We will proceed with a third in the series of lumbar epidural steroid injection today with fluoroscopic guidance. Risks were again discussed including, but not limited to bleeding, infection, possibility of epidural hematoma, subsequent neurologic compromise, dural puncture, headaches, spinal cord and/or nerve damage, side effects of steroid medications and poor results regarding pain control. The patient understands and wished to proceed. The patient will return to clinic in approximately 2 weeks for followup. She was counseled on return appointment, activity level and side effects to be aware of. DIAGNOSES: Lumbar radiculopathy with lumbar degenerative disk disease and lumbar post-laminectomy syndrome. PROCEDURE: Lumbar epidural steroid injection, translaminar approach L5-S1 level using C-arm fluoroscopic guidance under sterile prep and drape using local anesthetic. MEDICATIONS INJECTED: A total of 120 mg Depo-Medrol plus 10 mL of preservative-free normal saline and 2 mL of contrast. CONDITION AT DISCHARGE: Stable. The patient tolerated the procedure well, had no complications. CAROL EDWARDS MD DR: REX/troy JOB#: [id number] / [id number]
== END ==
LOC: PNCL 08:01
PROVIDERS: ATTEND Anesthesiology
DX: M51.16 Intervertebral disc disorders with radiculopathy, lumbar region (principal); M96.1 Postlaminectomy syndrome, not elsewhere classified; M79.18 Myalgia, other site
CPT/HCPCS: 62323; J1030; J1040; Q9965

== ENCOUNTER → 2019-06-27 | Outpatient (CLI) | payer OTHER ==
[~2019-06-27] MED LIST changes: +GADOTERATE 7.5 MMOL/15ML VIAL. IVP ONE; -IOHEXOL 180 MG/ML 10 ML VIAL. ONE; -methylPREDNISolone ACETATE 40 MG/ML VIAL. ONE; -methylPREDNISolone ACETATE 80 MG/ML VIAL. ONE
--- NOTE | 2019-06-27 13:14 | KCIC ---
LUMBAR SPINE WO/W CONTRAST History: Lumbar radiculopathy. Prior surgery. Technique: Multiplanar, multi sequential MR imaging was performed of the lumbar spine with and without contrast. Contrast: 12 mL Dotarem. Comparison: February 21, 2019 and October 16, 2018. Findings: Transitional lumbosacral anatomy. Maintaining numbering system as previously described L5-S1 identified on axial series 5 image #13. Postoperative changes prior right L5-S1 hemilaminectomy. Normal vertebral body height and alignment. No fracture. No pathologic marrow replacing process. Conus terminates at the normal location. No evidence of nerve root clumping. L1-L2: No canal or neuroforaminal narrowing. L2-L3: No canal or neuroforaminal narrowing. L3-L4: Small posterior disc bulge. Mild facet arthropathy. No canal narrowing. Bilateral subarticular recess narrowing, right greater than left. Small superimposed right foraminal disc protrusion slight abutment of the descending right L4 nerve root. Mild bilateral neural foraminal narrowing. L4-L5: Small posterior disc bulge. Mild facet arthropathy. No canal narrowing. No neuroforaminal narrowing. L5-S1: Postoperative changes right hemilaminotomy. Heterogeneous rounded lesion within the right subarticular recess with peripheral enhancement, concerning for disc fragment. The lesion overall unchanged in size compared to February 2019. There is decreased T2 signal associated with the lesion compared to prior. There is additional adjacent enhancement, may represent epidural fibrosis. There is severe narrowing of the right subarticular recess with impingement of the descending right S1 nerve root. No canal narrowing. Mild bilateral neural foraminal narrowing. Impression: 1. Postoperative changes right L5-S1 with heterogeneous peripherally enhancing rounded lesion within the right subarticular recess contributing to impingement on the descending right S1 nerve root, concerning for free disc fragment. Overall similar size compared to prior with variable signal intensity. 2. Additional L5-S1 epidural enhancement concerning for scar/fibrosis. Electronically signed by: Rashad Guadalupe DO (06/27/2019 1:12 PM) [email or web address]
== END | disposition home or self-care (01) ==
LOC: KCIC MRI 07:53
PROVIDERS: ATTEND Neurological Surgery
DX: M51.16 Intervertebral disc disorders with radiculopathy, lumbar region (principal); M48.07 Spinal stenosis, lumbosacral region; M12.88 Other specific arthropathies, not elsewhere classified, other specified site
CPT/HCPCS: 72158; A9575

== ENCOUNTER → 2019-07-29 | Outpatient (CLI) | payer OTHER ==
[~2019-07-29] MED LIST changes: +BUPIVACAINE MPF 0.25% 10 ML VIAL. ONE; -GADOTERATE 7.5 MMOL/15ML VIAL. IVP ONE; +methylPREDNISolone ACETATE 40 MG/ML VIAL. ONE
--- NOTE | 2019-07-29 08:27 | PAIN ---
DATE OF SERVICE: 07/29/2019 PROGRESS NOTE FOR PAIN CLINIC DIAGNOSES: 1. Lumbar radiculopathy with lumbar degenerative disk disease and lumbar post-laminectomy syndrome. 2. Myofascial pain. HISTORY OF PRESENT ILLNESS: The patient is a 49-year-old female who returns for followup status post lumbar epidural steroid injections x 3, most recently 06/11/2019. The patient did very well with this with about a 40% improvement overall, still pain in the low back and right lower extremity for which she feels this recent physical therapy may have actually exacerbated. The patient also has some pain in the neck and shoulders as well as in the upper back with some radiation to the upper extremities as well. The patient reports no new motor or sensory deficits, no new bowel or bladder incontinence. Reports some significant tenderness in the neck and shoulders, as she has had before, which is fairly tight. She is still doing some therapy as mentioned, but not gaining a kind of improvement at this time. The patient reports pain is 7 on a scale of 10 at its worst in the past week, 6 on average, 3 at its least and is a 6 today. The patient reports it is tingling, burning, aching, sharp, tight in the shoulders and neck. The patient reports no new motor or sensory deficits or other complaints. PHYSICAL EXAMINATION: VITAL SIGNS: The patient's blood pressure is 114/72, pulse 81, respirations 16, temperature is 98.2 degrees Fahrenheit, height is 5 feet 7 inches, weight is 161 pounds. GENERAL: The patient is awake, alert, oriented, appropriate, very pleasant demeanor. HEENT: Shows normocephalic, atraumatic. Extraocular movements are intact and symmetrical. Oral cavity: Mucous membranes moist and pink. Dentition is intact. NECK: Shows anterior throat supple without palpable lymphadenopathy noted. Swallow reflex symmetrical. CHEST: Shows normal on inspection. Breath sounds are clear to auscultation bilaterally. HEART: Shows S1, S2 clear. No murmurs auscultated. ABDOMEN: Soft, nontender, nondistended. No palpable organomegaly is noted. No rebound or guarding demonstrated. BACK: Shows spine grossly in the midline. Cervical paraspinous muscle shows symmetrical on inspection, but very firm tight musculature, which is quite tender bilaterally in the superior medial and lower aspect of the cervical paraspinous musculatures with very firm rope-like musculature consistent with trigger point areas of muscle throughout. This is true into the trapezius musculature as well as into the thoracic paraspinous muscles, very firm, slightly more noticeable on the right side than the left with very rope-like musculature consistent with trigger point areas of muscle bilaterally. The patient has good rotational motion of cervical spine, both laterally as well as extension and flexion without significant difficulty. EXTREMITIES: Upper extremities show deep tendon reflexes 2+ in the biceps, triceps tendons. Motor exam is strong with satellite project site monitor strength rated at 5/5 bilaterally. Peripheral pulses are 2+. No peripheral edema is noted. Options were discussed with the patient. The patient's old chart was reviewed as her current medication regimen updated. Current review of systems updated today as well. We will proceed with trigger point injections of the identified musculature. Risks were again discussed including, but not limited to bleeding, infection, possibility of intravascular injection sequelae, spread of local anesthetic and numbness, side effects of steroid medication and poor results regarding pain control. The patient understands and wished to proceed. The patient will return to clinic in approximately 2 weeks for followup. She was counseled as to return appointment, activity level and side effects to be aware of. The patient will also follow up with her neurosurgeon later this week as scheduled. DIAGNOSIS: Myofascial pain. PROCEDURE: Trigger point injections, bilateral cervical paraspinous musculature, bilateral trapezius musculature, bilateral thoracic paraspinous musculature under sterile prep and drape using local anesthetic. MEDICATION INJECTED: A total of 12 mL of 0.25% bupivacaine, 40 mg Depo-Medrol after negative aspiration at each injection. CONDITION AT DISCHARGE: Stable. The patient tolerated the procedure well, had no complications. CAROL EDWARDS MD DR: REX/troy JOB#: [id number] / [id number]
== END ==
LOC: PNCL 07:49
PROVIDERS: ATTEND Anesthesiology
DX: M79.18 Myalgia, other site (principal); M51.16 Intervertebral disc disorders with radiculopathy, lumbar region; M96.1 Postlaminectomy syndrome, not elsewhere classified
CPT/HCPCS: 20553; J1030; J3490

== ENCOUNTER → 2019-08-26 | Outpatient (CLI) | payer OTHER ==
[~2019-08-26] MED LIST changes: -BUPIVACAINE MPF 0.25% 10 ML VIAL. ONE; +LINZESS145 MCG PO; +METH750T2 PO; -methylPREDNISolone ACETATE 40 MG/ML VIAL. ONE
[2019-08-26 16:02] LABS: BASO % 0 % (0-3); EOS # 0.2 x10^3/uL (0.0-0.7); EOS % 3 % (0-3); HEMATOCRIT 34.9 % (36.0-47.0); HEMOGLOBIN 11.8 g/dL (12.0-15.5); LYMPH # 1.4 x10^3/uL (1.0-4.8); LYMPH % 31 % (24-48); MEAN CORPUSCULAR HEMOGLOBIN 31 pg (25-35); MEAN CORPUSCULAR HGB CONC 34 g/dL (31-37); MEAN CORPUSCULAR VOLUME 91 fL (79-100); MONO # 0.5 x10^3/uL (0.0-1.1); MONO % 10 % (0-9); NEUT # 2.5 x10^3/uL (1.8-7.7); NEUT % 55 % (31-73); PLATELET COUNT 197 x10^3/uL (140-400); RED BLOOD COUNT 3.84 x10^6/uL (3.50-5.40); WHITE BLOOD COUNT 4.6 x10^3/uL (4.0-11.0)
[2019-08-26 16:14] LABS: PROTHROMBIN TIME PATIENT 13.3 SEC (11.7-14.0)
[2019-08-26 16:34] LABS: ALBUMIN 3.7 g/dL (3.4-5.0); ALBUMIN/GLOBULIN RATIO 1.3 (1.0-1.7); CALCIUM 8.8 mg/dL (8.5-10.1); CREATININE 0.9 mg/dL (0.6-1.0); GFR 66.8; POTASSIUM 4.3 mmol/L (3.5-5.1); TOTAL BILIRUBIN 0.3 mg/dL (0.2-1.0); TOTAL PROTEIN 6.6 g/dL (6.4-8.2)
== END | disposition home or self-care (01) ==
LOC: SURGPAT 14:56
PROVIDERS: ATTEND Neurological Surgery
DX: Z01.818 Encounter for other preprocedural examination (principal); M51.17 Intervertebral disc disorders with radiculopathy, lumbosacral region; Z88.1 Allergy status to other antibiotic agents
CPT/HCPCS: 36415; 80053; 85025; 85610; 85730; 87641

== ENCOUNTER 2019-09-02 07:36 | Inpatient (IN) | payer OTHER ==
--- NOTE | 2019-08-30 17:27 | HP ---
ADMIT DATE: 09/02/2019 DATE OF SURGERY: 09/02/2019. HISTORY OF PRESENT ILLNESS: The patient is a pleasant 49-year-old who in November of this year underwent a lumbar microsurgery at L5-S1. She did well for a month and then developed very severe pain in her lower back and right hip and inguinal region lateral and anterior thigh and leg. She rates her pain as a 6/10. Increasing her activity increases her pain. Rest helps her. She had epidural steroid injections recently as well as PT, which did not help her significantly. PAST MEDICAL HISTORY: Headaches, migraines, head or neck injury, kidney stones, psychiatric care, tonsillitis. PAST SURGICAL HISTORY: Sinus surgery in 2002, tonsillectomy in 2002, bladder sling in 2013, tubal ligation in 2013, ACDF C6-C7 09/2015, lumbar microdiskectomy L5-S1 on the right in November 2018. FAMILY HISTORY: Cancer, coronary artery disease and migraine headaches. ALLERGIES: AMOXICILLIN. CURRENT MEDICATIONS: Aleve, ibuprofen, Imitrex, bupropion, alprazolam, trazodone, multivitamin, Biofreeze and Tylenol, Medrol. REVIEW OF SYSTEMS: A 12-point review of systems was obtained and is noncontributory except for that mentioned above. PHYSICAL EXAMINATION: NEUROSURGERY EXAMINATION: GENERAL APPEARANCE: Alert, pleasant, no acute distress. HEAD: Normocephalic and atraumatic. SKIN: Warm and dry, well-healed lumbar incision. MUSCULOSKELETAL: Lumbar paraspinal muscle bulk is normal, restricted range of motion of the lumbar spine, [id number] tenderness of lower lumbar spine with palpation, normal range of motion of the lower extremities bilaterally. EXTREMITIES: No clubbing, cyanosis or edema. NEUROLOGIC: Alert and oriented x 3, normal recent and remote memory, strength 5/5 in bilateral lower extremities, sensory was intact to light touch bilaterally in her lower extremities except for decrease in the dorsum of her right foot, reflexes are present and symmetric in lower extremities. Bilaterally positive straight leg raising on the right, negative straight leg raising on the left, normal gait. IMAGING: I reviewed a lumbar MRI scan from 06/27/2019. On that study, the principal abnormality is at L5-S1 where there is a very large rounded lesion within the right subarticular recess with peripheral enhancement. There are postoperative changes at that level. There appears to be an epidural fibrosis as well as a recurrent disk herniation at this level. There is severe narrowing of the subarticular recess with impingement on the right transversing S1 nerve root. ASSESSMENT/PLAN: She has significant radiculopathy from what appears to be a recurrent disk herniation in the area operated earlier this year. She has not improved with time or conservative measures including epidural steroid injections and physical therapy. I feel that further surgery is warranted. Because of the scar formation, I felt the recurrent disk should be combined with an instrumented lumbar fusion. I did discuss this with the patient in detail including the technique, risks, and expected postoperative course. She understands. She would like to go ahead. We will make the arrangements. JESSENIA BURLESON MD DR: BRIAN/troy JOB#: [id number] / [id number] OSIEL
[~2019-09-02] VITALS: Ht 167.6 cm; Wt 71.2 kg
[2019-09-02] VITALS (10 sets, daily range): BP systolic 100–123; BP diastolic 60–80
[~2019-09-02 07:36] MED LIST changes: +BACITRACIN 50,000 UNIT in IV NORMAL SALINE 1000ML BAG 1,000 ML IRR ONE; +BUPIVACAINE-EPI 0.5%-1:200000 MPF 30 ML VIAL. INJ ONE; +IV RINGERS,LACTATED 1000ML 1,000 ML IV SCH; +LIDOCAINE 1% PF 2 ML VIAL. ID PRN; -METH750T2 PO; +ONDANSETRON PF 4 MG/2 ML VIAL. IV PRN; +PROCHLORPERAZINE 10 MG/2 ML VIAL. IV PRN; +fentaNYL PF VIAL 100 MCG/2 ML VIAL IV PRN
[2019-09-02] MEDS ORDERED: GELATIN SPONGE SIZE 100. ONE (07:40)
[2019-09-02] MEDS ORDERED: THROMBIN TOPICAL 20,000 UNIT SPRAY.SYRN KIT TP ONE (07:41)
[2019-09-02] MEDS ORDERED: KETOROLAC 60 MG/2 ML VIAL. ONE (07:41)
[2019-09-02] MEDS ORDERED: PROPOFOL 100 ML IV ONE (09:22)
[2019-09-02] MEDS ORDERED: DESFLURANE > 120 MINUTES IH ONE (09:28)
[2019-09-02] MEDS ORDERED: fentaNYL PF VIAL 100 MCG/2 ML VIAL ONE ×2 (09:28→14:57)
[2019-09-02] MEDS ORDERED: REMIFENTANIL 2 MG VIAL. IV ONE (09:29)
[2019-09-02] MEDS ORDERED: DEXAMETHASONE SOD PHOS 20 MG/5 ML VIAL. ONE (09:29)
[2019-09-02] MEDS ORDERED: MIDAZOLAM HCL/PF 2 MG/2 ML VIAL. ONE (09:29)
[2019-09-02] MEDS ORDERED: ROCURONIUM 50 MG/5 ML VIAL. ONE (09:29)
[2019-09-02] MEDS ORDERED: PHENYLEPHRINE 10 MG/ML VIAL. ONE (09:29)
[2019-09-02] MEDS ORDERED: ONDANSETRON PF 4 MG/2 ML VIAL. ONE (09:30)
--- NOTE | 2019-09-02 11:14 | RAD ---
CT LUMBAR SPINE WO CONTRAST Indication: Lumbar herniated disc, radiculopathy Technique: Noncontrast CT imaging was performed of the lumbar spine for the purpose of surgical assistance, multiplanar reconstruction images submitted. One or more of the following individualized dose reduction techniques were utilized for this examination: 1. Automated exposure control 2. Adjustment of the mA and/or kV according to patient size 3. Use of iterative reconstruction technique. Comparison: MRI lumbar spine exam June 27, 2019 Findings: There is again transitional anatomy. Most inferior fully formed intervertebral disc space is again considered L5-S1. Vertebral body stature and AP alignment are maintained. There is again mild degenerative disc disease at L4-5. There is again laminectomy defect on the right at L5-S1. There is multilevel lumbar facet degenerative change. There is no significant osseous lumbar spinal stenosis, very mild narrowing of the far left lateral recess at L4-5 by facet degenerative change. Facet degenerative change contributes to mild posterior narrowing of the right L5-S1 neural foramen. There is a 1 to 2 mm left renal calculus, also small 1 mm calculus. Kidneys are not fully evaluated. IMPRESSION: 1. Most inferior fully formed intervertebral disc space is considered L5-S1 for this report. There is again right laminectomy defect at what is considered L5-S1. Facet degenerative change contributes to mild posterior narrowing of the right L5-S1 neural foramen. There is mild L4-5 degenerative disc disease. 2. There are a couple of small left renal calculi. Electronically signed by: Yao Bishop MD (09/02/2019 11:12 AM) [email or web address]
[2019-09-02] MEDS ORDERED: GLYCOPYRROLATE 1 MG/5 ML VIAL. ONE (11:21)
[2019-09-02] MEDS ORDERED: CALCIUM CARBONATE 500 MG TAB.CHEW PO PRN (12:30)
[2019-09-02] MEDS ORDERED: fentaNYL PF VIAL 100 MCG/2 ML VIAL IVP PRN (12:30)
[2019-09-02] MEDS ORDERED: ACETAMINOPHEN 325 MG TABLET. PO PRN (12:30)
[2019-09-02] MEDS ORDERED: METHOCARBAMOL 750 MG TABLET PO PRN (12:30)
[2019-09-02] MEDS ORDERED: diphenhydrAMINE HCL 25 MG CAPSULE PO PRN (12:30)
[2019-09-02] MEDS ORDERED: 0.9 % SODIUM CHLORIDE 10 ML DISP.SYRIN. IV PRN (12:30)
[2019-09-02] MEDS ORDERED: MAGNESIUM HYDROXIDE 2,400 MG/30 ML ORAL.SUSP. PO PRN (12:30)
[2019-09-02] MEDS ORDERED: MAG HYDROX/ALUMINUM HYD/SIMETH 30 ML ORAL.SUSP PO PRN (12:30)
[2019-09-02] MEDS ORDERED: NALOXONE 0.4 MG/ML VIAL. IV PRN (12:30)
[2019-09-02] MEDS: MORPHINE SULFATE 2 MG/ML VIAL. IV PRN ×2 (14:45→14:55)
[2019-09-02] MEDS: fentaNYL PF VIAL 100 MCG/2 ML VIAL IV PRN ×2 (15:04→15:19)
[2019-09-02] MEDS ORDERED: PROCHLORPERAZINE 10 MG/2 ML VIAL. ONE (15:05)
[2019-09-02] MEDS ORDERED: HYDROmorphone 2 MG/ML VIAL ONE (15:14)
[2019-09-02] MEDS: HYDROmorphone 2 MG/ML VIAL IV PRN ×2 (15:17→15:46)
--- NOTE | 2019-09-02 16:30 | NUR ---
Arrived to unit by bed from PACU. Alert and oriented x's 4. C/o discomfort at incision site. Dressings x's 2 lower back are d/i. Placed new ice pack. Able to move all extremities without difficulty, pedal pulses + bilaterally, warm touch. Still has numbness on right great toe. IVF's intact and infusing. O2 at 2l per n/c. STEVE's and JAVIER's on bilaterally. Oriented to room and controls. Side rails up x's 2 with call light in reach. Family at bedside. Cont. monitor.
[2019-09-02] MEDS ORDERED: traZODone 50 MG TABLET. PO PRN (18:45)
[2019-09-02] MEDS ORDERED: ALPRAZolam 0.25 MG TABLET PO PRN (18:45)
[2019-09-02] MEDS ORDERED: DICYCLOMINE HCL 10 MG CAPSULE PO PRN (19:00)
[2019-09-02] MEDS ORDERED: SUMAtriptan SUCCINATE 25 MG TABLET PO PRN (19:00)
[2019-09-02] MEDS: POTASSIUM CL 20MEQ D5-0.45NACL 1,000 ML IV SCH (19:23)
[2019-09-02] MEDS: oxyCODONE/APAP 5/325 1 TAB TABLET PO PRN (19:25)
[2019-09-02] MEDS: ceFAZolin SODIUM IV Push 1 GM VIAL. IVP SCH (20:02)
[2019-09-02] MEDS: CETIRIZINE HCL 10 MG TABLET. PO SCH (20:45)
[2019-09-02] MEDS: FAMOTIDINE 20 MG TABLET. PO SCH (20:45)
[2019-09-02] MEDS: PROPRANOLOL 40 MG TABLET. PO SCH (20:45)
[2019-09-02] MEDS: DOCUSATE SODIUM 100 MG CAPSULE. PO SCH (20:49)
[2019-09-02] MEDS ORDERED: AMITRIPTYLINE HCL 25 MG TABLET. PO SCH (21:00)
[2019-09-03 03:15] VITALS: BP 94/57
[2019-09-03] MEDS: POTASSIUM CL 20MEQ D5-0.45NACL 1,000 ML IV SCH (03:20)
[2019-09-03] MEDS: ceFAZolin SODIUM IV Push 1 GM VIAL. IVP SCH ×2 (03:50→12:47)
[2019-09-03] MEDS: oxyCODONE/APAP 5/325 1 TAB TABLET PO PRN ×3 (04:00→12:46)
[2019-09-03 06:25] VITALS: BP 94/53
[2019-09-03] MEDS: CETIRIZINE HCL 10 MG TABLET. PO SCH (07:58)
[2019-09-03] MEDS: DOCUSATE SODIUM 100 MG CAPSULE. PO SCH (07:58)
[2019-09-03] MEDS: FAMOTIDINE 20 MG TABLET. PO SCH (08:00)
[2019-09-03] MEDS ORDERED: LUBIPROSTONE 24 MCG CAPSULE PO SCH (08:00)
[2019-09-03] MEDS ORDERED: NON FORMULARY ITEM (Mirabegron (Myrbetriq) 50 MG) PO SCH (09:00)
[2019-09-03] MEDS ORDERED: MULTIVITAMIN with MINERAL TABLET. PO SCH (09:00)
[2019-09-03] MEDS: PROPRANOLOL 40 MG TABLET. PO SCH (09:00)
[2019-09-03] MEDS ORDERED: FLUTICASONE 50MCG/NASAL SPRAY 16GM BOTTLE. NS SCH (09:00)
--- NOTE | 2019-09-03 09:00 | NUR ---
Ambulated hallways with standby assist. Tolerated it well. Return to room and sat in chair. Ice pack applied to lower back. Pain is only at incision site. Meds given. Cont. monitor.
[2019-09-03 11:05] VITALS: BP 111/68
[2019-09-03] MEDS ORDERED: METH750T2 PO (12:42)
[2019-09-03] MEDS ORDERED: OXYC1TAB15 PO (12:42)
--- NOTE | 2019-09-03 12:43 | DISCH ---
DISCHARGE INSTRUCTIONS Condition on Discharge Condition on Discharge: Stable Activity After Discharge Activity Instructions for Disc: Activity as tolerated, Avoid exertion, Prog ressive ambulation Other activity instructions: no driving for a week Bathing Instructions: No Tub Bath until see Lifting Instructions after Dis: No heavy lifting, No pulling or pushing, Do not lift >10 pounds Exercise Instruction after Dis: Exercise per therapy, Progress as tolerated Driving Instructions after Dis: No driving for 2 weeks Weight Bearing Status after Di: No restrictions Diet after Discharge Diet after Discharge: Regular Additional Diet Restrictions: Resume home diet Diet Texture: Regular Wound Incision Care Wound/Incision Care: Ice to area for comfort, May get incision wet Other wound/incision instructi: may remove in 24 hours if dry then may shower, no soaking Wound Care Equipment: Dressings Contacting the after DC Call your doctor for: Concerns you may have Follow-Up Follow Up With: Dr. Burleson's nurse in 10-14 days [phone] Treatment/Equipment after DC Adaptive Equipment Issued: None JESSENIA BURLESON MD Sep 03, 2019 12:43
--- NOTE | 2019-09-03 13:46 | NUR ---
Discharge instructions given with prescriptions. Answered questions and concerns. Both pt and family verbalized understanding. Extra dressing given. Wearing new LSO brace. Pt discharged home accompanied by father and friend.
--- NOTE | 2019-09-06 18:06 | PATHOLOGY ---
[facility] Accession Number: [id number] . 01 Material submitted: . vertebral column - LUMBAR DISC AND DECOMPRESSION . 01 Clinical history: . Recurrent lumbar herniated disc with radiculopathy, low back pain . 02 Diagnosis: Segments of fibrocartilaginous and skeletal muscle tissue and bone, lumbar disc and decompression: - Degenerative changes of fibrocartilaginous tissue. ([facility]; 09/06/2019) S 09/06/2019 1326 Local . 02 Comment: There is no evidence of an acute inflammatory process or malignancy. . 02 Electronically signed: . Efrem Tavera MD, Pathologist NPI- [id number] . 01 Gross description: . The specimen is received in formalin, labeled "France Keller, lumbar disc and decompression", are multiple irregular fragments of trent-yellow and gritty tissue possibly admixed with bone spicule measuring 2.2 x 1.4 x 0.4 cm in aggregate. The largest segment is a trent bone 1.2 x 0.9 cm, this is trisected. The specimen is submitted in A1, after decalcification. ([facility]; 09/03/2019) [facility] 09/03/2019 2047 Local . 02 Pathologist provided ICD-10: M51.36 . 02 CPT . 600399, 424196 Specimen Comment: A courtesy copy of this report has been sent to [phone] Specimen Comment: Report sent to / DR LEWIS Specimen Comment: Report sent to Performed at: [address], [place], [place] [id number] MD David Palmer MD Phone: [phone] Performed at: 02 [facility] [address] [place], [place] [id number] MD Efrem Tavera MD Phone: [phone]
--- NOTE | 2019-09-09 20:30 | OP ---
DATE OF SURGERY: 09/02/2019 PREOPERATIVE DIAGNOSIS: Recurrent herniated lumbar disc, L5-S1, right with severe right lumbar radiculopathy. POSTOPERATIVE DIAGNOSIS: Recurrent herniated lumbar disc, L5-S1, right with severe right lumbar radiculopathy. OPERATIONS PERFORMED: 1. Lumbar hemilaminotomy and transforaminal exposure/reop with excision of recurrent herniated lumbar disc, right, L5-S1. 2. Posterior instrumentation, L5-S1. 3. Posterolateral fusion, L5-S1. The operation was done with multimodality monitoring, fluoroscopy, microscopic dissection, [employer] guidance. SURGEON: Job Burleson M.D. SIDE STITCHING MACHINE OPERATOR: JUDSON Dunlap assisted with the surgery. She assisted with the instrumentation and closure. OPERATIVE INDICATIONS: The patient is a very pleasant 49-year-old who in 11/2018 underwent lumbar microsurgery for disc at L5-S1. She did well for a time and then developed recurrent pain and was found on subsequent imaging studies to have a large recurrent disc at L5-S1 on the right. She had epidural steroid injections, which did not help her significantly. She worked hard to try to recover from the problem without further surgery, but could not. Based on her images, I felt that a reoperation combined with an instrumented lumbar fusion would be the best course for her and I discussed this with her. She understood and she wished to go ahead. DESCRIPTION OF PROCEDURE: Following general endotracheal anesthesia, the patient was positioned prone on the Sundar table. Lumbar region prepped and draped in standard fashion. STEVE hose and AV impulse boots were applied for DVT prophylaxis. The microscope was draped. Fluoroscopy was draped and brought into field. Monitoring was established. Ancef 2 g was given less than 1 hour prior to initiation of the surgery. Using fluoroscopic guidance, a midline incision was made directly over the L5-S1 interspace. I dissected down through skin and subcutaneous tissue, reflected the paraspinal muscles and I placed a Springer microdisk retractor on the right side. I brought in the microscope, and using the high speed air drill as well as curettes, I exposed the edges of her previous hemilaminotomy and then drilled superiorly, laterally and inferiorly and performed a partial foraminotomy, but also carried the bone work superiorly to visualize the takeoff of the L5 root and I followed this into the foramen and then I worked through dense scarring along the outer edge of the dura below this and I gently retracted the dura medially. There was a large recurrent disc herniation and I incised the ligament and teased back and removed multiple large disc fragments and then entered the disc space and performed discectomy with pituitary rongeurs. As I worked, the area became very well decompressed. I then carried my exposure further laterally, and using the [employer] system, which I had previously initialized at the beginning of the case, I drilled into the pedicle of L5 and S1, and using the [employer] system, tapped and placed 6.5 screws. During this time, I also excoriated the lateral facets, transverse processes and packed bone in the lateral gutter. I did aspirate 20 mL of bone marrow from the right iliac crest and mixed this with allograft bone, which was packed into the gutter. The screws were placed. The radha was placed. The system was torqued and then I went to the left side where after obtaining exposure drilled into the pedicle of L5 and S1, tapped and placed screws. I did use stimulated EMG monitoring with every maneuver into the pedicle and assured myself that I was completely within the pedicle at every level without any problems. The screws were placed, connecting radha was placed, the nuts were applied and the entire system was torqued, and then during this time, I also laid posterior and posterolateral bone on the left side. Following this, then I explored carefully. The monitoring was excellent throughout the wound. The hemostasis was also excellent. I did use a bipolar as well as bone wax judiciously. I irrigated copiously. I closed the wound in layers with absorbable suture, skin was closed with 4-0 subcuticular stitch. The operation went very well and the patient was taken uneventfully to recovery room in excellent condition. I was quite pleased with the surgery. JOB BURLESON MD DR: BRIAN/troy JOB#: [id number] / [id number] OSIEL
== END 2019-09-03 13:46 | disposition home or self-care (01) | DRG 460 ==
LOC: OPSVCIP 07:36 → 4 SOUTHEST 16:20
PROVIDERS: ADMIT Neurological Surgery; ATTEND Neurological Surgery
PROC: 0SB40ZZ Excision of Lumbosacral Disc, Open Approach (ICD-10-PCS; 2019-09-02)
PROC: 01NB0ZZ Release Lumbar Nerve, Open Approach (ICD-10-PCS; 2019-09-02)
PROC: 01NR0ZZ Release Sacral Nerve, Open Approach (ICD-10-PCS; 2019-09-02)
PROC: 4A11X4G Monitoring of Peripheral Nervous Electrical Activity, Intraoperative, External Approach (ICD-10-PCS; 2019-09-02)
PROC: 07DR0ZZ Extraction of Iliac Bone Marrow, Open Approach (ICD-10-PCS; 2019-09-02)
PROC: 0SG3071 Fusion of Lumbosacral Joint with Autologous Tissue Substitute, Posterior Approach, Posterior Column, Open Approach (ICD-10-PCS; principal; 2019-09-02 10:30)
DX: M51.16 Intervertebral disc disorders with radiculopathy, lumbar region (principal); G43.909 Migraine, unspecified, not intractable, without status migrainosus; Z87.442 Personal history of urinary calculi; Z98.51 Tubal ligation status; Z82.49 Family history of ischemic heart disease and other diseases of the circulatory system; Z80.9 Family history of malignant neoplasm, unspecified; Z88.0 Allergy status to penicillin
CPT/HCPCS: 36415; 72131; 76000; 81025; 86850; 86900; 86901; 88304; 88311; A7015; C1713; J0690; J0696; J0780; J1100; J1170; J1885; J2250; J2270; J2405; J2704; J3010; J3490; J7030; J7120; G0378

== ENCOUNTER → 2019-09-23 | Outpatient (CLI) | payer OTHER ==
[2019-09-03 11:05] VITALS: BP 111/68
[~2019-09-23] MED LIST changes: -BACITRACIN 50,000 UNIT in IV NORMAL SALINE 1000ML BAG 1,000 ML IRR ONE; +BUPIVACAINE MPF 0.25% 10 ML VIAL. ONE; -BUPIVACAINE-EPI 0.5%-1:200000 MPF 30 ML VIAL. INJ ONE; -IV RINGERS,LACTATED 1000ML 1,000 ML IV SCH; -LIDOCAINE 1% PF 2 ML VIAL. ID PRN; +METH750T2 PO; -ONDANSETRON PF 4 MG/2 ML VIAL. IV PRN; -PROCHLORPERAZINE 10 MG/2 ML VIAL. IV PRN; -fentaNYL PF VIAL 100 MCG/2 ML VIAL IV PRN; +methylPREDNISolone ACETATE 40 MG/ML VIAL. ONE
--- NOTE | 2019-09-23 11:10 | PAIN ---
DATE OF SERVICE: 09/23/2019 PROGRESS NOTE FOR PAIN CLINIC DIAGNOSES: 1. Lumbar radiculopathy with lumbar degenerative disk disease, post-lumbar laminectomy syndrome. 2. Myofascial pain. HISTORY OF PRESENT ILLNESS: The patient is a 49-year-old female, who returns for followup status post lumbar epidural steroid injection as well as trigger point injection on her last visit. The patient reports she was doing much better. She had about 40% improvement overall in the first month, was much better than, and then the pain began to return in the base of the neck and shoulders, upper back and mid back. The patient reports it is a 9 on a scale of 10 at its worst in the past week, 7 on an average, 4 at its least and is a 4 today. The patient reports no new motor or sensory deficits. Reports pain in the base of the neck and shoulders, more noticeable after she had the lumbar surgery recently and is wearing a lumbar support brace; and also with some colder weather, she is noticing the pain is worse. The patient reports that the pain is aching and sharp, tight in neck and shoulders, upper back, mid back, burning and severe at times and worse with walking and standing, better with sitting or lying down. Reports it generally does not awaken her from sleep most nights. The patient reports no new motor or sensory deficits, no bowel or bladder incontinence or other complaints. PHYSICAL EXAMINATION: VITAL SIGNS: The patient's blood pressure is 130/76, pulse 71, respirations 18, temperature 98.3 degrees Fahrenheit, height is 5 feet 7 inches, weight is 158 pounds. GENERAL: The patient is awake, alert, oriented, appropriate, very pleasant demeanor. HEENT: Head shows normocephalic, atraumatic. Extraocular movements are intact and symmetrical. Oral cavity: Mucous membranes moist and pink; dentition is intact. NECK: Shows anterior throat supple without palpable lymphadenopathy noted. Swallow reflex symmetrical. CHEST: Shows normal on inspection. Breath sounds are clear to auscultation bilaterally. HEART: Shows S1, S2 clear. No murmurs auscultated. ABDOMEN: Soft, nontender, nondistended. BACK: Shows spine grossly in the midline. Normal-appearing cervical lordotic curvature, thoracic kyphotic curvature and some minor flattening of lumbar lordotic curvature. A well-healed surgical scar noted. Cervical paraspinous musculature shows symmetrical on inspection, with palpation shows some moderate tenderness diffusely bilaterally, but very firm rope-like musculature consistent with trigger point areas of musculature in the superior, middle and inferior aspects, slightly more on the right than the left, but present bilaterally and very tender to palpation, but without radiation. This is true into the trapezius musculature bilaterally, again more on the right, and to the thoracic paraspinous muscles, more on the left, and more medially on the left and more laterally on the right in the thoracic paraspinous muscles in the upper and middle distribution. Lower thoracic paraspinous musculature is more supple without specific trigger points. Again, no radiation with any of the trigger points noted. EXTREMITIES: The patient's upper extremities show deep tendon reflexes 2+ in the biceps and triceps tendons. Motor exam is strong with performance manager strength 5/5 as is bicep and tricep flexion bilaterally. Peripheral pulses are 2+ radial. No peripheral edema is noted. Options were discussed with the patient. The patient's old chart was reviewed as her current medication regimen updated. Current review of systems updated today as well. We will proceed with trigger point injections of the bilateral cervical paraspinous musculature, bilateral trapezius musculature and bilateral thoracic paraspinous musculature. Risks were again discussed including, but not limited to bleeding, infection, possibility of intravascular injection sequelae, spread of local anesthetic and numbness, pneumothorax, side effects of steroid medication and poor results regarding pain control. The patient understands and wished to proceed. The patient will return to clinic in approximately 2 weeks for followup; counseled on return appointment, activity level and side effects to be aware of. DIAGNOSIS: Myofascial pain. PROCEDURE: Trigger point injections, bilateral cervical paraspinous musculature, bilateral trapezius musculature and bilateral thoracic paraspinous musculature under sterile prep and drape using local anesthetic. MEDICATION INJECTED: A total of 40 mg Depo-Medrol and 10 mL of 0.25% bupivacaine after negative aspiration at each injection site. CONDITION AT DISCHARGE: Stable. The patient tolerated the procedure well, had no complications. CAROL EDWARDS MD DR: REX/troy JOB#: [id number] / [id number]
== END ==
LOC: PNCL 09:12
PROVIDERS: ATTEND Anesthesiology
DX: M79.18 Myalgia, other site (principal); M51.16 Intervertebral disc disorders with radiculopathy, lumbar region
CPT/HCPCS: 20553; J1030; J3490

== ENCOUNTER 2019-10-07 18:17 | Emergency (ER) | payer OTHER ==
[~2019-10-07] VITALS: Ht 170.2 cm; Wt 70.8 kg
[~2019-10-07 18:17] MED LIST changes: -BUPIVACAINE MPF 0.25% 10 ML VIAL. ONE; -BUPR300T4 PO; +BUPR300T92 PO; -CETI10TA22 PO; +CETI10TA24 PO; +ONDA-84 PO; -ONDA4TAB11 PO; -methylPREDNISolone ACETATE 40 MG/ML VIAL. ONE
[2019-10-07 19:58] VITALS: BP 137/81
--- NOTE | 2019-10-07 21:57 | RAD ---
CT maxillofacial without contrast History: Right-sided facial pain and nasal pain for 3 months Axial helical images of the face were obtained without contrast. Axial and coronal reconstruction was performed. The nasal septum septum is mostly midline. The ostiomeatal complexes are widely patent consistent with prior turbinectomy. The paranasal sinuses are clear. Impression: No acute findings. PQRS Compliance Statement: One or more of the following individualized dose reduction techniques were utilized for this examination: 1. Automated exposure control 2. Adjustment of the mA and/or kV according to patient size 3. Use of iterative reconstruction technique Electronically signed by: Betito Reese III, MD (10/07/2019 9:54 PM) [facility]
--- NOTE | 2019-10-07 22:14 | PHYS DOC ---
Past Medical History Past Medical History: No Pertinent History Additional Past Medical Histor: chronic back pain Past Surgical History: Tonsillectomy Additional Past Surgical Histo: cervical fusion, back surgery, bladder sling, sinus surgery Alcohol Use: None Drug Use: None Adult General Chief Complaint Chief Complaint: FACE PAIN [facility] HPI Patient is a 49 year old female who presents to the emergency department with complaints of right-sided facial pain and pain in her upper lip just below her nose for the last 3 months. Patient states that she accidentally hit herself in the face with pry bar or at the end of June this year and reports that she has had pain in this area since then. She denies any vison changes, numbness, tingling, or nosebleeds. She denies any fever, cough, sore throat, nausea, vomiting, diarrhea, abdominal pain, chest pain, palpitations, ear pain, or nosebleeds. Patient states she has had a couple of root canals because she thought the pain was due to bad teeth, but sx have not improved after this was done. Currently rates her pain a 8 out of 10 on the pain scale, states she takes 5/325 mg of oxycodone for her back pain and which takes that medication it doesn't even help her facial pain. All other ROS is neg unless otherwise noted in HPI. Review of Systems Review of Systems See Above Allergies Allergies Allergies Coded Allergies Type Severity Reaction Last Updated Verified amoxicillin Allergy Intermediate 09/02/19 Yes Physical Exam Physical Exam See Above Constitutional: Well developed, well nourished, no acute distress, non-toxic appearance. [] HENT: Normocephalic, atraumatic, bilateral external ears normal, oropharynx moist, no oral exudates, nose normal; R maxillary sinus TTP, R upper jaw ttp, no malunion of teeth, no dental abscess, facial movements symmetrical no facial droop [] Eyes: PERRLA, EOMI, conjunctiva normal, no discharge. [] Neck: Normal range of motion, no tenderness, supple, no stridor. [] Cardiovascular:Heart rate regular rhythm Lungs & Thorax: Respirations even and unlabored, no retractions, no respiratory distress Skin: Warm, dry, no erythema, no rash. [] Extremities: No cyanosis, ROM intact Neurologic: Alert and oriented X 3, no focal deficits noted. [] Psychologic: Affect normal, judgement normal, mood normal. [] Current Patient Data Vital Signs Vital Signs Date Time Temp Pulse Resp B/P (MAP) Pulse Ox O2 Delivery O2 Flow Rate FiO2 10/07/19 19:58 98.0 88 18 137/81 (99) 100 Room Air 98.0 EKG EKG [] Radiology/Procedures Radiology/Procedures PROCEDURE: CT MAXILLOFACIAL WO CONTRAST CT maxillofacial without contrast History: Right-sided facial pain and nasal pain for 3 months Axial helical images of the face were obtained without contrast. Axial and coronal reconstruction was performed. The nasal septum septum is mostly midline. The ostiomeatal complexes are widely patent consistent with prior turbinectomy. The paranasal sinuses are clear. Impression: No acute findings. [] Course & Med Decision Making Course & Med Decision Making Pertinent Labs and Imaging studies reviewed. (See chart for details) [] Dragon Disclaimer Dragon Disclaimer This electronic medical record was generated, in whole or in part, using a voice recognition dictation system. Departure Departure Impression: Primary Impression: Chronic facial pain Disposition: HOME, SELF-CARE Condition: STABLE Referrals: MARGARITA LEWIS MD (PCP) Patient Instructions: Chronic Pain Management-Brief Additional Instructions: Follow up with your primary care doctor for further evaluation of your chronic pain. Your CT was negative for any acute sinusitis or facial fx. Return to the ER if symptoms worsen. GISSEL HUNT APRN Oct 07, 2019 22:14
[2019-10-08] MEDS ORDERED: ONDA4TAB7 PO (05:35)
== END 2019-10-07 22:40 | disposition home or self-care (01) ==
LOC: ER 18:17
DX: R51 Headache (principal); G89.29 Other chronic pain; Z88.1 Allergy status to other antibiotic agents
CPT/HCPCS: 70486; 99284-25

== ENCOUNTER → 2019-11-27 | Outpatient (CLI) | payer OTHER ==
[2019-10-08 05:00] VITALS: BP 143/81
[~2019-11-27] MED LIST changes: +ONDA4TAB7 PO
--- NOTE | 2019-11-27 08:51 | RAD ---
EXAM: Right hip, 2 views; lumbar spine, 2 views. HISTORY: Pain. COMPARISON: 06/27/2019 FINDINGS: Right hip: 2 views of the right hip are obtained. There is no fracture, dislocation or subluxation. The femoral head is normal in configuration. Lumbar spine: 2 views of the lumbar spine are obtained. There is instrumented posterior spinal fusion at L4-L5. There is sacralization of the L5 vertebral segment and rudimentary L5-S1 disc, a normal variant. There is mild endplate remodeling at L3-L4. There is minimal lumbar dextrocurvature. IMPRESSION: 1. Instrumented fusion at L4-L5. 2. Sacralized L5 segment with rudimentary L5-S1 disc, a normal variant. Electronically signed by: Gisele Pierce MD (11/27/2019 8:48 AM) [facility]
== END | disposition home or self-care (01) ==
LOC: RAD 08:14
PROVIDERS: ATTEND Neurological Surgery
DX: M43.8X6 Other specified deforming dorsopathies, lumbar region (principal); Z98.1 Arthrodesis status
CPT/HCPCS: 72100

== ENCOUNTER → 2019-11-27 | Outpatient (CLI) | payer OTHER ==
[2019-10-08 05:00] VITALS: BP 143/81
--- NOTE | 2019-11-27 08:51 | RAD ---
EXAM: Right hip, 2 views; lumbar spine, 2 views. HISTORY: Pain. COMPARISON: 06/27/2019 FINDINGS: Right hip: 2 views of the right hip are obtained. There is no fracture, dislocation or subluxation. The femoral head is normal in configuration. Lumbar spine: 2 views of the lumbar spine are obtained. There is instrumented posterior spinal fusion at L4-L5. There is sacralization of the L5 vertebral segment and rudimentary L5-S1 disc, a normal variant. There is mild endplate remodeling at L3-L4. There is minimal lumbar dextrocurvature. IMPRESSION: 1. Instrumented fusion at L4-L5. 2. Sacralized L5 segment with rudimentary L5-S1 disc, a normal variant. Electronically signed by: Gisele Pierce MD (11/27/2019 8:48 AM) [facility]
== END | disposition home or self-care (01) ==
LOC: RAD 08:08
PROVIDERS: ATTEND Internal Medicine
DX: M25.551 Pain in right hip (principal); G43.809 Other migraine, not intractable, without status migrainosus; Z68.23 Body mass index [BMI] 23.0-23.9, adult
CPT/HCPCS: 73502

== ENCOUNTER → 2020-03-30 | Outpatient (CLI) | payer OTHER ==
[2019-10-08 05:00] VITALS: BP 143/81
--- NOTE | 2020-03-30 14:39 | KCIC ---
Cervical spine CT without contrast History: Chronic neck pain, ACDF, pseudarthrosis, numbness and tingling of the upper extremities bilaterally Technique: Noncontrast CT imaging was performed of the cervical spine. Multiplanar images are reviewed. Exposure: One or more of the following individualized dose reduction techniques were utilized for this examination: 1. Automated exposure control 2. Adjustment of the mA and/or kV according to patient size 3. Use of iterative reconstruction technique. Comparison: January 30, 2019 MRI cervical spine exam Findings: There is again anterior cervical fusion hardware at C6-7, partially incorporated interbody graft at this level although complete interbody fusion not apparent. There is mild cervical dextroscoliosis. Cervical vertebral body stature is maintained. There is again reversal of the lordotic curvature centered near C6. There is again minimal posterior subluxation of C6 relative to C7 and mild grade 1 anterior spondylolisthesis C4-C5 and C5-C6. There is mild C4-5 degenerative disc disease. Atlantoaxial distance is within normal limits. There is adequate alignment of the lateral masses of C1 relative to C2. C2-C3: There is moderate bilateral facet hypertrophic change. Osseous spinal canal and neural foramina are adequate. C3-C4: Osseous spinal canal and right neural foramen are adequate. There is very mild left uncovertebral degenerative change. There is moderate to severe left facet degenerative change. There is mild narrowing of the left neural foramen. C4-C5: There is severe left facet hypertrophic change, mild to moderate right facet degenerative change. Central canal is adequate 11 mm. Right neural foramen is adequate. There is severe narrowing of the left neural foramen primarily from posteriorly by facet. C5-C6: There is moderate to severe facet degenerative change bilaterally. There is likely negligible posterior bulge, central canal probably borderline about 10 mm. There is very mild narrowing of the left neural foramen, right neural foramen not significantly narrowed. C6-7: There are posterior osteophytes indenting the ventral thecal sac, central canal narrowed to about 8 to 9 mm. There is bilateral facet degenerative change, also uncovertebral degenerative change. There is fairly severe neural foramina compromise bilaterally. C7-T1: Spinal canal and neural foramina are not significantly narrowed. Impression: 1. There is no significant cervical spinal stenosis. 2. There is more significant neural foramina compromise on the left at C4-C5 and bilaterally at C6-7 due to facet and uncovertebral degenerative change. 3. There is anterior cervical fusion hardware at C6-7, partially incorporated graft although no evidence of complete osseous interbody fusion. 4. There is mild C4-5 degenerative disc disease. 5. There is mild abnormal alignment as stated. Electronically signed by: Yao Bishop MD (03/30/2020 2:37 PM) [id number]
== END | disposition home or self-care (01) ==
LOC: KCIC CT 09:10
PROVIDERS: ATTEND Neurological Surgery
DX: M50.321 Other cervical disc degeneration at C4-C5 level (principal); M96.0 Pseudarthrosis after fusion or arthrodesis; M25.78 Osteophyte, vertebrae
CPT/HCPCS: 72125

== ENCOUNTER → 2020-03-30 | Outpatient (CLI) | payer OTHER ==
[2019-10-08 05:00] VITALS: BP 143/81
[~2020-03-30] MED LIST changes: +BUPIVACAINE MPF 0.25% 10 ML VIAL. ONE; +methylPREDNISolone ACETATE 40 MG/ML VIAL. ONE
--- NOTE | 2020-03-30 08:34 | PAIN ---
DATE OF SERVICE: 03/30/2020 PROGRESS NOTE FOR PAIN CLINIC DIAGNOSES: 1. Lumbar radiculopathy with lumbar degenerative disk disease and lumbar post-laminectomy syndrome. 2. Myofascial pain. HISTORY OF PRESENT ILLNESS: The patient is a 49-year-old female who returns for followup status post trigger point injections and previous lumbar epidural steroid injections, last seen 09/23/2019, patient did very well after trigger point injections, about a 75% improvement for several weeks, about 5 weeks after which was much improved. The patient reports the pain began to return in the base of the neck, shoulders, upper back and the upper neck as well, more on the right side than the left, but present bilaterally. The patient reports it is radiating into the right arm with numbness and tingling in all the fingers on the right hand occasionally and intermittently. The patient reports the pain in the neck and shoulders as a 10 on a scale of 10 at its worse, the past week, 10 on average, 2 at its least and is a 10 today, pressure, aching, sharp, tight, shooting, stabbing, burning, tingling in the right arm and shoulder, in the upper back, mid back as well as the back of the neck, is constant, becoming more severe and unbearable with activity, worse with repetitive motions, worse with working using right upper extremity with weightbearing. The patient reports initially she was doing much better with doing work activities, household activities, moving items and sleeping better. The patient reports still does not awaken her from sleep. The patient does have a CT scan of cervical spine later today as ordered by her neurosurgeon. The patient reports no new motor or sensory deficits, no bowel or bladder incontinence or other complaints. PHYSICAL EXAMINATION: VITAL SIGNS: The patient's blood pressure 126/75, pulse 111, respirations 16, temperature 98.2 degrees Fahrenheit, height is 5 feet 7 inches, weight is 153 pounds. GENERAL: The patient is awake, alert, oriented, appropriate, very pleasant demeanor. HEENT: Shows normocephalic, atraumatic. Extraocular movements are intact and symmetrical. Oral cavity: Mucous membranes moist and pink. Dentition is intact. NECK: Shows anterior throat supple without palpable lymphadenopathy noted. Swallow reflex symmetrical. CHEST: Shows normal on inspection. Breath sounds are clear bilaterally. HEART: Shows S1, S2 clear. No murmurs auscultated. ABDOMEN: Soft, nontender, nondistended. No palpable organomegaly is noted. No rebound or guarding demonstrated. BACK: Shows spine grossly in the midline. Normal cervical lordotic curvature and thoracic kyphotic curvature and minor flattening of lumbar lordotic curvature with well-healed surgical scarring, lumbar distribution. Cervical paraspinous muscle shows symmetrical on inspection, with palpation shows some very firm rope-like musculature throughout the upper, middle and lower distribution of paraspinous muscles in the cervical distribution, very firm rope-like muscles consistent with trigger point areas of musculature, worse on the right, more tender on the right than the left, but present bilaterally. This is true into the superior medial trapezius as well as lateral trapezius on the right medial trapezius on the left, also into the thoracic paraspinous musculature and rhomboid distribution, worse on the right than the left. Again, very firm rope-like musculature consistent with trigger point areas of muscle bilaterally without specific radiation. The patient has good rotational motion of cervical spine, both laterally as well as extension and flexion without significant increase in pain. EXTREMITIES: Upper extremities show deep tendon reflexes at 2+ in the biceps and triceps tendons. Motor exam is strong with block operator strength rated at 5/5 as is biceps and triceps flexion and symmetrical. Peripheral pulses are 2+ radial. No peripheral edema is noted bilaterally. Options were discussed with the patient. The patient's old chart was reviewed as her current medication regimen updated. Current review of systems updated today as well and we will proceed with trigger point injections today in the identified musculature. Risks were discussed including but not limited to bleeding, infection, possibility of intravascular injection sequelae, spread of local anesthetic and numbness, side effects of steroid medication and poor results regarding pain control. The patient understands and wished to proceed. The patient will return to clinic in approximately 2 weeks for followup. She was counseled on return appointment, activity level and side effects to be aware of. DIAGNOSIS: Myofascial pain. PROCEDURE: Trigger point injections in the bilateral cervical paraspinous muscles, bilateral trapezius musculature, bilateral thoracic paraspinous musculature under sterile prep and drape using local anesthetic. MEDICATION INJECTED: A total of 40 mg Depo-Medrol plus total of 12 mL of 0.25% bupivacaine after negative aspiration at each injection site. CONDITION AT DISCHARGE: Stable. The patient tolerated procedure well, had no complications. CAROL EDWARDS MD DR: REX/troy JOB#: [id number] / [id number]
== END ==
LOC: PNCL 07:36
PROVIDERS: ATTEND Anesthesiology
DX: M79.18 Myalgia, other site (principal); M51.16 Intervertebral disc disorders with radiculopathy, lumbar region; M96.1 Postlaminectomy syndrome, not elsewhere classified
CPT/HCPCS: 20553; J1030; J3490

== ENCOUNTER → 2020-04-30 | Outpatient (CLI) | payer OTHER ==
[2019-10-08 05:00] VITALS: BP 143/81
[~2020-04-30] MED LIST changes: -BUPIVACAINE MPF 0.25% 10 ML VIAL. ONE; -CETI10TA24 PO; +CETI10TA74 PO; +DOCU-153 PO; +FAMO20TA5 PO; -OXYC-411 PO; +OXYC1TAB20 PO; -methylPREDNISolone ACETATE 40 MG/ML VIAL. ONE
[2020-04-30 14:04] LABS: BASO % 1 % (0-3); EOS # 0.1 x10^3/uL (0.0-0.7); EOS % 2 % (0-3); HEMATOCRIT 37.4 % (36.0-47.0); HEMOGLOBIN 12.9 g/dL (12.0-15.5); LYMPH # 1.7 x10^3/uL (1.0-4.8); LYMPH % 26 % (24-48); MEAN CORPUSCULAR HEMOGLOBIN 31 pg (25-35); MEAN CORPUSCULAR HGB CONC 35 g/dL (31-37); MEAN CORPUSCULAR VOLUME 89 fL (79-100); MONO # 0.5 x10^3/uL (0.0-1.1); MONO % 8 % (0-9); NEUT # 4.2 x10^3/uL (1.8-7.7); NEUT % 64 % (31-73); PLATELET COUNT 194 x10^3/uL (140-400); RED BLOOD COUNT 4.23 x10^6/uL (3.50-5.40); RED CELL DISTRIBUTION WIDTH 13.5 % (11.5-14.5); WHITE BLOOD COUNT 6.6 x10^3/uL (4.0-11.0)
[2020-04-30 14:14] LABS: PROTHROMBIN TIME PATIENT 12.9 SEC (11.7-14.0)
[2020-04-30 14:30] LABS: ALBUMIN 3.4 g/dL (3.4-5.0); ALBUMIN/GLOBULIN RATIO 0.9 (1.0-1.7); CALCIUM 8.7 mg/dL (8.5-10.1); GFR 59.2; POTASSIUM 4.5 mmol/L (3.5-5.1); TOTAL BILIRUBIN 0.3 mg/dL (0.2-1.0); TOTAL PROTEIN 7.2 g/dL (6.4-8.2)
== END | disposition home or self-care (01) ==
LOC: SURGPAT 13:08
PROVIDERS: ATTEND Neurological Surgery
DX: Z11.59 Encounter for screening for other viral diseases (principal); M96.0 Pseudarthrosis after fusion or arthrodesis; M54.12 Radiculopathy, cervical region; M54.2 Cervicalgia; Z88.1 Allergy status to other antibiotic agents
CPT/HCPCS: 36415; 80053; 85025; 85610; 85730; 87641; U0003

== ENCOUNTER 2020-05-04 06:58 | Inpatient (IN) | payer OTHER ==
--- NOTE | 2020-05-01 15:38 | HP ---
ADMIT DATE: 05/04/2020 PREOPERATIVE HISTORY AND PHYSICAL DATE OF SURGERY: 05/04/2020. HISTORY OF PRESENT ILLNESS: The patient is a pleasant 49-year-old who has difficulty with neck pain and pain which radiates into her right shoulder and right proximal arm. She says that she also notes tingling in her right arm, forearm and right hand. She reports tingling into the right index, middle and ring fingers. She says that her neck pain is continuous but worsens with activities and over the last several months has been increasing. She did undergo an ACDF at C6-C7 in 2014, which helped her arm pain, but not her neck pain. Rest seems to give her some relief, especially lying down flat. She has had Botox, trigger point injections and physical therapy as well as massage to help with her pain. There is no pain on the left side. PAST MEDICAL HISTORY: Headache, migraines, neck or head injury, kidney stones, psychiatric care, tonsillitis. PAST SURGICAL HISTORY: Sinus surgery in 2002, tonsillectomy in 2002, bladder sling in 2013, tubal ligation in 2013, ACDF C6-C7 in 09/2015, lumbar microdiskectomy L5-S1 on the right in 11/2018, an instrumented lumbar fusion, L5-S1 in 08/2019. FAMILY HISTORY: She has a family history of cancer, coronary artery disease and migraine headaches. SOCIAL HISTORY: She is employed. Nonsmoker. Alcohol consumption 1-2 times per month. ALLERGIES: AMOXICILLIN. CURRENT MEDICATIONS: Imitrex, bupropion, alprazolam, trazodone, multivitamin, Biofreeze, Tylenol, ibuprofen. REVIEW OF SYSTEMS: A 12-point review of systems was obtained and is noncontributory except that mentioned above. NEUROSURGERY EXAMINATION: GENERAL APPEARANCE: Alert, pleasant, no acute distress. HEAD: Normocephalic and atraumatic. NECK AND THYROID: There is tenderness in the posterior cervical paraspinal musculature and over the right trapezius with palpation, well-healed incision. SKIN: Warm and dry. MUSCULOSKELETAL: Cervical paraspinal muscle bulk is normal, restricted range of motion of the cervical spine, normal range of motion of the upper extremities bilaterally. EXTREMITIES: No clubbing, cyanosis, or edema. NEUROLOGIC: Alert and oriented x 3, normal recent and remote memory. There is normal strength. There is decreased sensation in the index, middle and ring fingers of her right hand, triceps reflex on the right was diminished compared to the left, normal gait. IMAGING: I reviewed a recent cervical CT scan. There is a nonunion at C6-C7 that is apparent There is no facet fusion posteriorly. She does have significant neural foraminal narrowing at C6-C7. ASSESSMENT: 1. 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 2. Radiculopathy, cervical region. 3. Cervicalgia. PLAN: I believe there is a nonunion resulting in foraminal narrowing at C6-C7. This is responsible for her neck and arm pain. I recommended a posterior cervical hemilaminotomy, medial facetectomy to decompress the right C7 nerve root, combined with posterior instrumentation and facet fusion at C6-C7. I spoke with her about her surgery and the risks as well as the expected postoperative course. I explained to her that it was possible that this would not help her significantly. She understands. She would like to proceed with surgery anyway. We will make the arrangements. JESSENIA BURLESON MD DR: BRIAN/troy JOB#: [id number] / [id number] OSIEL
[2020-05-04] VITALS (10 sets, daily range): BP systolic 91–123; BP diastolic 53–72
[~2020-05-04] VITALS: Ht 170.2 cm; Wt 74.5 kg
[~2020-05-04 06:58] MED LIST changes: +BACITRACIN 50,000 UNIT in IV NORMAL SALINE 1000ML BAG 1,000 ML IRR ONE; -DOCU-153 PO
[2020-05-04] MEDS ORDERED: IV RINGERS,LACTATED 1000ML 1,000 ML IV SCH (07:00)
[2020-05-04] MEDS ORDERED: fentaNYL PF VIAL 100 MCG/2 ML VIAL IV PRN (07:00)
[2020-05-04] MEDS ORDERED: LIDOCAINE 1% PF 2 ML VIAL. ID PRN (07:00)
[2020-05-04] MEDS ORDERED: PROCHLORPERAZINE 10 MG/2 ML VIAL. IV PRN (07:00)
[2020-05-04] MEDS ORDERED: ONDANSETRON PF 4 MG/2 ML VIAL. IV PRN (07:00)
[2020-05-04] MEDS ORDERED: BUPIVACAINE-EPI 0.5%-1:200000 MPF 30 ML VIAL. ONE (07:20)
[2020-05-04] MEDS ORDERED: GELATIN SPONGE SIZE 100. ONE (07:20)
[2020-05-04] MEDS ORDERED: THROMBIN TOPICAL 20,000 UNIT SPRAY.SYRN KIT TP ONE (07:21)
[2020-05-04] MEDS ORDERED: KETOROLAC 60 MG/2 ML VIAL. ONE (07:21)
[2020-05-04] MEDS ORDERED: ROCURONIUM 50 MG/5 ML VIAL. ONE (08:20)
[2020-05-04] MEDS ORDERED: GLYCOPYRROLATE 1 MG/5 ML VIAL. ONE (08:20)
[2020-05-04] MEDS ORDERED: MIDAZOLAM HCL/PF 2 MG/2 ML VIAL. ONE (08:20)
[2020-05-04] MEDS ORDERED: REMIFENTANIL 2 MG VIAL. IV ONE (08:21)
[2020-05-04] MEDS ORDERED: DEXAMETHASONE SOD PHOS 20 MG/5 ML VIAL. ONE (08:22)
[2020-05-04] MEDS ORDERED: ONDANSETRON PF 4 MG/2 ML VIAL. ONE (08:22)
[2020-05-04] MEDS ORDERED: LIDOCAINE 2% PF 5 ML VIAL. ONE (08:22)
[2020-05-04] MEDS ORDERED: PROPOFOL 10 MG/ML (20ML) VIAL. IV ONE (08:22)
[2020-05-04] MEDS ORDERED: PHENYLEPHRINE 10 MG/ML VIAL. ONE (08:22)
[2020-05-04] MEDS ORDERED: DESFLURANE > 120 MINUTES IH ONE (08:23)
[2020-05-04] MEDS ORDERED: PROPOFOL 50 ML IV ONE ×2 (09:37)
[2020-05-04] MEDS ORDERED: KETOROLAC 30 MG/ML VIAL. ONE (09:38)
[2020-05-04] MEDS ORDERED: 0.9 % SODIUM CHLORIDE 10 ML DISP.SYRIN. IV PRN (10:15)
[2020-05-04] MEDS ORDERED: CALCIUM CARBONATE 500 MG TAB.CHEW PO PRN (10:15)
[2020-05-04] MEDS ORDERED: traZODone 50 MG TABLET. PO PRN (10:15)
[2020-05-04] MEDS ORDERED: diphenhydrAMINE HCL 25 MG CAPSULE PO PRN (10:15)
[2020-05-04] MEDS ORDERED: MAG HYDROX/ALUMINUM HYD/SIMETH 30 ML ORAL.SUSP PO PRN (10:15)
[2020-05-04] MEDS ORDERED: ALPRAZolam 0.25 MG TABLET PO PRN (10:15)
[2020-05-04] MEDS ORDERED: oxyCODONE/APAP 5/325 1 TAB TABLET PO PRN (10:15)
[2020-05-04] MEDS ORDERED: NALOXONE 0.4 MG/ML VIAL. IV PRN (10:15)
[2020-05-04] MEDS ORDERED: ONDANSETRON PF 4 MG/2 ML VIAL. IVP PRN (10:15)
[2020-05-04] MEDS ORDERED: ACETAMINOPHEN 325 MG TABLET. PO PRN (10:15)
[2020-05-04] MEDS ORDERED: fentaNYL PF VIAL 100 MCG/2 ML VIAL IVP PRN (10:15)
[2020-05-04] MEDS ORDERED: MAGNESIUM HYDROXIDE 2,400 MG/30 ML ORAL.SUSP. PO PRN (10:15)
[2020-05-04] MEDS ORDERED: NEOSTIGMINE METHYLSULFATE 5 MG/5 ML SYRINGE. ONE (10:57)
[2020-05-04] MEDS ORDERED: fentaNYL PF VIAL 100 MCG/2 ML VIAL ONE ×2 (10:58→11:42)
[2020-05-04] MEDS ORDERED: DICYCLOMINE HCL 10 MG CAPSULE PO PRN (11:00)
[2020-05-04] MEDS: DOCUSATE SODIUM 100 MG CAPSULE. PO SCH ×2 (11:00→20:51)
[2020-05-04] MEDS ORDERED: ONDANSETRON ODT 4 MG TAB.RAPDIS. PO PRN (11:00)
[2020-05-04] MEDS: PROPRANOLOL 40 MG TABLET. PO SCH ×2 (11:00→21:00)
[2020-05-04] MEDS: CETIRIZINE HCL 10 MG TABLET. PO SCH ×2 (11:00→20:51)
[2020-05-04] MEDS ORDERED: MORPHINE SULFATE 2 MG/ML VIAL. ONE (11:31)
[2020-05-04] MEDS: MORPHINE SULFATE 2 MG/ML VIAL. IV PRN ×2 (11:34→11:47)
--- NOTE | 2020-05-04 11:40 | OP ---
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 OPERATION PERFORMED: 1. Posterior cervical hemilaminotomy, medial facetotomy, right C6-C7. 2. Posterior instrumentation and facet fusion, C6-C7. The operation was done with multimodality monitoring including EMG, SSEP, motor evoked potentials. We also used fluoroscopy and microscopic dissection. OPERATIVE INDICATIONS: The patient is a pleasant woman, who in the past has undergone anterior cervical discectomy at C6-C7. However, she developed a nonunion. She continued to have problems with right cervical radicular pain, which continued to the present time. On imaging studies, there was foraminal narrowing at C6-C7 on the right. I recommended a posterior cervical microdecompression of the nerve at that level and combine this with an instrumented fusion. I have discussed the surgery, the risks, technique and expected postoperative course and she wished to go ahead. DESCRIPTION OF PROCEDURE: Following general endotracheal anesthesia, the patient was positioned prone on the Sundar table in [place] pins. Posterior cervical region was clipped, prepped and draped in standard fashion. STEVE hose and AV impulse boots were applied for DVT prophylaxis. A microscope was draped. Fluoroscopy was draped and brought into field. Monitoring was established. Ancef 2 grams given less than 1 hour prior to initiation of the surgery. Using fluoroscopic guidance, a midline incision was made over the C6-C7 interspace. I dissected the subcutaneous tissue, reflected the paraspinal muscles, placed a [place] microdisc retractor. I brought in the high speed air drill and burred two agricultural aircraft pilot holes in the facets of C6 and C7 after I exposed the lamina and facets and carried the muscles laterally placing a self-retaining retractor. I drilled and tapped these openings and then covered that with bone wax. I then brought in the microscope and under microscopic technique dissection, I drilled a hemilaminotomy and thinned the bone over the nerve root as it exited laterally and then used 1 and 2 mm micro Kerrison's to follow the root out and relieved the foraminal narrowing and I could easily pass a blunt hook out laterally. There were a few spurs, more proximally compressing the root. These were completely removed and the root was very free. I then placed the [place] screws into C6-C7 and I removed a portion of the spinous process of C7 morselized bone, drilled the facet and then packed this laterally. A 30 mm radha was placed and nuts were placed and then torqued. I did use 10 mm screws. At this point, I irrigated copiously with antibiotic solution. I did cover the hemilaminotomy site with Gelfoam. I irrigated and then hemostasis was excellent. I closed the wound in layers with absorbable sutures. The skin was closed with skin jose de jesus. The operation went very well. The patient was awakened uneventfully, taken to recovery room in excellent condition. I was quite pleased with the surgery. JESSENIA BURLESON MD DR: BRIAN/troy JOB#: [id number] / [id number] OSIEL
[2020-05-04] MEDS: fentaNYL PF VIAL 100 MCG/2 ML VIAL IV PRN ×2 (11:46→11:54)
[2020-05-04] MEDS ORDERED: HYDROmorphone 2 MG/ML VIAL ONE (11:56)
[2020-05-04] MEDS: HYDROmorphone 2 MG/ML VIAL IV PRN ×4 (11:59→12:48)
[2020-05-04] MEDS: MULTIVITAMIN with MINERAL TABLET. PO SCH (12:00)
--- NOTE | 2020-05-04 13:20 | NUR ---
Arrived to unit by bed from PACU. Awakens easily. Ice to posterior neck. Pt lying flat on bed. Able to move all extremities easily, radial pulses + bilaterally and warm. Pain only at surgical site. IVF's intact and infusing. STEVE's and JAVIER's on bilaterally. Side rails up x's 2 with call light in reach. Friend at bedside. Cont. monitor.
--- NOTE | 2020-05-04 15:00 | NUR ---
Ambulated to bathroom with steady gait and voided without difficulty. Return to bed. New ice pack applied to posterior neck. Cont. monitor.
[2020-05-04] MEDS: LUBIPROSTONE 24 MCG CAPSULE PO SCH (17:00)
[2020-05-04] MEDS: METHOCARBAMOL 750 MG TABLET PO PRN (17:37)
[2020-05-04] MEDS: ceFAZolin SODIUM IV Push 1 GM VIAL. IVP SCH (17:38)
[2020-05-04] MEDS: POTASSIUM CL 20MEQ D5-0.45NACL 1,000 ML IV SCH ×2 (20:07→23:32)
[2020-05-04] MEDS: FAMOTIDINE 20 MG TABLET. PO SCH (20:51)
[2020-05-04] MEDS ORDERED: AMITRIPTYLINE HCL 25 MG TABLET. PO SCH (21:00)
[2020-05-05] MEDS: oxyCODONE/APAP 5/325 1 TAB TABLET PO PRN ×2 (02:54→08:36)
[2020-05-05] MEDS: ceFAZolin SODIUM IV Push 1 GM VIAL. IVP SCH ×2 (02:55→08:37)
[2020-05-05 03:00] VITALS: BP 104/60
[2020-05-05] MEDS: METHOCARBAMOL 750 MG TABLET PO PRN (06:04)
[2020-05-05 07:00] VITALS: BP 95/53
[2020-05-05] MEDS: MULTIVITAMIN with MINERAL TABLET. PO SCH (08:35)
[2020-05-05] MEDS: DOCUSATE SODIUM 100 MG CAPSULE. PO SCH (08:35)
[2020-05-05] MEDS: CETIRIZINE HCL 10 MG TABLET. PO SCH (08:36)
[2020-05-05] MEDS: FAMOTIDINE 20 MG TABLET. PO SCH (08:36)
[2020-05-05] MEDS: LUBIPROSTONE 24 MCG CAPSULE PO SCH (08:36)
[2020-05-05] MEDS: PROPRANOLOL 40 MG TABLET. PO SCH ×2 (08:36→08:37)
[2020-05-05] MEDS ORDERED: NON FORMULARY ITEM (Mirabegron (Myrbetriq) 50 MG) PO SCH (09:00)
[2020-05-05 11:00] VITALS: BP 161/97
[2020-05-05] MEDS ORDERED: DOCU-153 PO (11:46)
[2020-05-05] MEDS ORDERED: METH750T2 PO (11:46)
--- NOTE | 2020-05-05 11:48 | DISCH ---
DISCHARGE INSTRUCTIONS Condition on Discharge Condition on Discharge: Stable Activity After Discharge Activity Instructions for Disc: Activity as tolerated, Avoid exertion, Walk in house Bathing Instructions: Shower-keep dressing dry, No Tub Bath until see Lifting Instructions after Dis: No heavy lifting, No pulling or pushing, Do not lift >10 pounds Exercise Instruction after Dis: Progress as tolerated Driving Instructions after Dis: No driving for 2 weeks Weight Bearing Status after Di: No restrictions Diet after Discharge Diet after Discharge: Regular Additional Diet Restrictions: Resume home diet Diet Texture: Regular Liquid Texture: Thin Liquid Wound Incision Care Wound/Incision Care: Ice to area for comfort, Keep wound/cast CDI Other wound/incision instructi: No direct water to incision, may remove dressing after shower Wound Care Equipment: Dressings, Sutures/jose de jesus Contacting the DRFredy after DC Call your doctor for: Concerns you may have Follow-Up Follow Up With: call Dr. Burleson's office for 2 week post op appt Treatment/Equipment after DC Adaptive Equipment Issued: None JESSENIA BURLESON MD May 05, 2020 11:48
--- NOTE | 2020-05-05 13:05 | NUR ---
reviewed discharge instructions with patient and . reviewed medications follow up new meds and side effects and restrictions to activities of daily living such as bathing and driving.restrictions to lifting and incisional care(dressing care) verbalized understanding of these instructions. Addendum: 05/05/20 at 1308 by JIM LIANG RN dismissed to home with with scripts and dressings
--- NOTE | 2020-05-05 14:02 | NUR ---
SW following. Discussed with RN, pt discharging home. No SW needs. PT recommended home.
--- NOTE | 2020-05-05 14:26 | DS ---
DATE OF DISCHARGE: 05/05/2020 DATE OF SURGERY: 05/04/2020 DISCHARGE DIAGNOSIS: Foraminal narrowing right C6-C7 with right cervical radiculopathy and nonunion C6-C7. OPERATIONS PERFORMED: 1. Posterior cervical hemilaminotomy with medial facetectomy, right C6-C7. 2. Posterior instrumentation and facet fusion, C6-C7. HISTORY OF PRESENT ILLNESS: The patient is a pleasant 49-year-old who in the past has undergone an ACDF at C6-C7. However, she developed a nonunion. She continued to have problems with right cervical radicular pain, which continued to the present time. On imaging studies, there was also foraminal narrowing at C6-C7 on the right. I recommended a posterior cervical microdecompression and combine this with instrumented fusion. I spoke with her about the surgery and the risk and the expected postoperative course. She wished to go ahead. HOSPITAL COURSE: She was admitted to the floor postoperatively where she has done well. Her pain is well controlled. She is in good condition to discharge home. Physical therapy was initiated and instruction was given to her regarding her activities. DISCHARGE MEDICATIONS: She will resume her medications per the MRAD. DISCHARGE INSTRUCTIONS: She was instructed regarding incision care, activity restrictions and expectations for the next several weeks. She will follow up in our office in 2 weeks. She understands to call with any questions or concerns. JESSENIA BURLESON MD DR: ANIKA/troy JOB#: [id number] / [id number]
--- NOTE | 2020-05-05 15:08 | PATHOLOGY ---
[facility] Accession Number: [id number] . 01 Material submitted: . vertebral column - CERVICAL DECOMPRESSION . 01 Clinical history: . Cervical pseudoarthrosis, radiculopathy . 02 Diagnosis: Segments of cartilaginous tissue and bone, cervical decompression: - Degenerative changes of cartilaginous tissue. (JPM:finish molder; 05/05/2020) MBR 05/05/2020 1447 Local . 02 Comment: There is no evidence of an acute inflammatory process or malignancy. (JPM:lolis; 05/05/2020) . 02 Electronically signed: . Efrem Tavera MD, Pathologist NPI- [id number] . 01 Gross description: . The specimen is received in formalin, labeled "France Keller, cervical decompression" and consists of multiple small fragments of gritty pink-trent tissue and bone, measuring 1.5 x 1.0 x 0.3 cm in aggregate which are entirely submitted in A1 following decalcification. (SDY; 05/04/2020) SYU/SYU 05/05/2020 1407 Local . 02 Pathologist provided ICD-10: M50.30 . 02 CPT . 127649, [id number] Specimen Comment: A courtesy copy of this report has been sent to [phone], [phone] Specimen Comment: [id number] Specimen Comment: Report sent to / DR LEIWS Performed at: 01 [facility] [address], [place] [id number] MD David Palmer MD Phone: [phone] Performed at: 02 [facility] [address] [place], [place] [id number] MD Efrem Tavera MD Phone: [phone]
== END 2020-05-05 13:13 | disposition home or self-care (01) | DRG 473 ==
LOC: OPSVCIP 06:58 → 4 NORTH 13:36
PROVIDERS: ADMIT Neurological Surgery; ATTEND Neurological Surgery
PROC: 4A0FX3Z Measurement of Musculoskeletal Contractility, External Approach (ICD-10-PCS; 2020-05-04)
PROC: 01N10ZZ Release Cervical Nerve, Open Approach (ICD-10-PCS; 2020-05-04)
PROC: 0RG107J Fusion of Cervical Vertebral Joint with Autologous Tissue Substitute, Posterior Approach, Anterior Column, Open Approach (ICD-10-PCS; principal; 2020-05-04 08:30)
DX: M96.0 Pseudarthrosis after fusion or arthrodesis (principal); M54.12 Radiculopathy, cervical region; M48.02 Spinal stenosis, cervical region; G43.909 Migraine, unspecified, not intractable, without status migrainosus; Y83.8 Other surgical procedures as the cause of abnormal reaction of the patient, or of later complication, without mention of misadventure at the time of the procedure; Z88.0 Allergy status to penicillin; Z98.51 Tubal ligation status; Z87.442 Personal history of urinary calculi; Z80.9 Family history of malignant neoplasm, unspecified; Z82.49 Family history of ischemic heart disease and other diseases of the circulatory system
CPT/HCPCS: 36415; 76000; 81025; 86850; 86900; 86901; 88304; 88311; A7015; C1713; J0690; J1100; J1170; J1885; J2250; J2270; J2370; J2405; J2704; J2710; J3010; J3480; J3490; J7030; J7120; 97116-GP; 97530-GP; G0378; Q0163

== ENCOUNTER → 2020-07-20 | Outpatient (CLI) | payer OTHER ==
[~2020-07-20] MED LIST changes: -BACITRACIN 50,000 UNIT in IV NORMAL SALINE 1000ML BAG 1,000 ML IRR ONE; +DOCU-153 PO
--- NOTE | 2020-07-20 22:24 | RAD ---
CERVICAL SPINE 2-3V History: Reason: S/P CERVICAL FUSION / Spl. Instructions: / History: Technique: 2 views cervical spine. Comparison: March 30, 2020 CT Findings: Anterior and right posterior stabilization C6-C7 with interbody fusion. Grade 1 anterolisthesis C4 on C5 and C5 on C6, unchanged. Mild degenerative disc changes most prominent C4-C5 and C5-C6. Facet arthropathy. Prevertebral soft tissues unremarkable. Impression: 1. Anterior and right posterior stabilization C6-C7. 2. Grade 1 anterolisthesis C4 on C5 and C5 on C6, unchanged. 3. Multilevel cervical spondylosis, unchanged. Electronically signed by: Rashad Guadalupe DO (07/20/2020 10:21 PM) [facility]
== END ==
LOC: RAD 20:12
PROVIDERS: ATTEND Neurological Surgery
DX: M47.812 Spondylosis without myelopathy or radiculopathy, cervical region (principal); M43.12 Spondylolisthesis, cervical region; M43.22 Fusion of spine, cervical region
CPT/HCPCS: 72040

== ENCOUNTER → 2022-02-14 | Outpatient (CLI) | payer OTHER ==
[~2022-02-14] MED LIST changes: +CONTRAST GIVEN. MC PRN; +CYCL10TA19 PO; -CYCL10TA2 PO; +DICY20TA PO; -DICY20TA3 PO; +DOCU-148 PO; -DOCU-153 PO; +IOHEXOL 350 MG/ML 100 ML VIAL. IV ONE; +METH-562 PO; -METH750T2 PO; +MIRA25TA PO; -MIRA50TA PO
--- NOTE | 2022-02-14 08:45 | RAD ---
EXAM: CT angiography of the chest with intravenous contrast. HISTORY: Shortness of breath. TECHNIQUE: Computed tomographic images of the chest were obtained following the administration of int ravenous contrast according to angiography protocol. Multiplanar reformatting was performed and three dimensional maximum intensity projection images were obtained. *One or more of the following individualized dose reduction techniques were utilized for this examina tion: 1. Automated exposure control. 2. Adjustment of the mA and/or kV according to patient size. 3. Use of iterative reconstruction technique. COMPARISON: None. FINDINGS: Evaluation for pulmonary emboli is limited due to significant respiratory motion. No convin cing pulmonary embolism is seen. The heart is normal in size. The aorta is normal in caliber. There i s no aortic dissection. There is no lymphadenopathy. There is no infiltrate, pleural effusion or pneumothorax. There is bilateral posterior dependent and basilar atelectasis. There is no acute finding involving the visualized upper abdomen. There is no ac [place] or suspicious osseous finding. There is a mild chronic appearing compression fracture of T8. IMPRESSION: No evidence of pulmonary embolism or alternative acute thoracic finding. Evaluation for distal pulmonary emboli is limited due to respiratory motion. Electronically signed by: Gisele Pierce MD (02/14/2022 8:43 AM) [id number]
--- NOTE | 2022-02-14 09:46 | RAD ---
EXAM: Bilateral lower extremity venous Doppler sonogram. HISTORY: Pulmonary embolism. DVT. Coagulopathy. TECHNIQUE: Murillo scale and color Doppler sonographic evaluation of the bilateral lower extremity veins with spectral waveform analysis was performed. FINDINGS: There is normal color flow, normal compressibility and there are normal spectral waveforms in the common femoral, superficial femoral, popliteal, posterior tibial and greater saphenous veins. IMPRESSION: No Doppler evidence of lower extremity deep venous thrombosis. Electronically signed by: Gisele Pierce MD (02/14/2022 9:44 AM) [id number]
--- NOTE | 2022-02-14 17:24 | CARD ---
MR#: [id number] Date of Study: 02/14/2022 Ordering Physician: JOAO MANCILLA, Referring Physician: JOAO MANCILLA, Tech: Angelica Reid [facility] [[email or web address] APPROVED REPORT EXAM: Two-dimensional and M-mode echocardiogram with Doppler and color Doppler. Other Information Quality : AverageHR: 90bpm Rhythm : NSRTechnically limited study due to body habitus. INDICATION DVT/PE 2D DIMENSIONS RVDd3.0 (2.9-3.5cm)Left Atrium(2D)2.7 (1.6-4.0cm) IVSd0.9 (0.7-1.1cm)Aortic Root(2D)2.9 (2.0-3.7cm) LVDd4.3 (3.9-5.9cm)LVOT Diameter2.0 (1.8-2.4cm) PWd0.8 (0.7-1.1cm)LVDs3.3 (2.5-4.0cm) FS (%) 24.0 %SV39.8 ml LVEF(%)48.2 (>50%) Aortic Valve AoV Peak Collins.117.5cm/sAoV VTI28.8cm AO Peak GR.5.5mmHgLVOT Peak Collins.90.5cm/s AO Mean GR.3mmHgAVA (VMAX)2.37cm2 Mitral Valve MV E Moowizdp87.9cm/sMV DECEL [id number] MV A Jtekyeig52.9cm/sE/A Ratio1.0 Pulmonary Valve PV Peak Izlnneqi20.7cm/s Tricuspid Valve TR P. Ldvuxgpf109cg/sRAP NHGPACCU2kbHy TR Peak Gr.76ohKuOJWR98oyCs Pulmonary Vein S1 Dclkyzhr39.8cm/sD2 Ebmjpdmu79.0cm/s PVa [id number] LEFT VENTRICLE The left ventricle is normal size. There is normal left ventricular wall thickness. The systolic func tion is mildly impaired. EF 50% There is mild global hypokinesis. The left ventricular diastolic func tion and filling is normal for age. No left ventricle thrombus noted on this study. There is no ventr icular septal defect visualized. There is no left ventricular aneurysm. There is no mass noted in the left ventricle. RIGHT VENTRICLE The right ventricle is normal size. There is normal right ventricular wall thickness. The right ventr icular systolic function is normal. ATRIA The left atrium size is normal. The right atrium size is normal. The interatrial septum is intact wit h no evidence for an atrial septal defect or patent foramen ovale as noted on 2-D or Doppler imaging. AORTIC VALVE The aortic valve is normal in structure and function. No aortic regurgitation is present. There is no aortic valvular stenosis. There is no aortic valvular vegetation. MITRAL VALVE The mitral valve is normal in structure and function. There is no evidence of mitral valve prolapse. There is no mitral valve stenosis. Doppler and Color-flow revealed trace to mild mitral regurgitation . TRICUSPID VALVE The tricuspid valve is normal in structure and function. Doppler and Color Flow revealed mild tricusp id regurgitation. The pulmonary artery systolic pressure is estimated at less than 30 mmHg. There is no tricuspid valve prolapse or vegetation. There is no tricuspid valve stenosis. PULMONIC VALVE There is no pulmonic valvular regurgitation. There is no pulmonic valvular stenosis. GREAT VESSELS The aortic root is normal in size. The ascending aorta is normal in size. The IVC is normal in size a nd collapses >50% with inspiration. PERICARDIAL EFFUSION There is no pleural effusion. There is no evidence of significant pericardial effusion. Critical Notification Critical Value: No <Conclusion> The systolic function is mildly impaired. EF 50% There is mild global hypokinesis. Doppler and Color Flow revealed mild tricuspid regurgitation. The pulmonary artery systolic pressure is estimated at less than 30 mmHg. Signed by : Vik Browne, Electronically Approved : 02/14/2022 17:24:23
== END ==
LOC: CT 08:12
PROVIDERS: ATTEND Internal Medicine Critical Care Medicine
DX: I08.1 Rheumatic disorders of both mitral and tricuspid valves (principal); J98.11 Atelectasis; M48.54XA Collapsed vertebra, not elsewhere classified, thoracic region, initial encounter for fracture; I82.403 Acute embolism and thrombosis of unspecified deep veins of lower extremity, bilateral; I26.99 Other pulmonary embolism without acute cor pulmonale
CPT/HCPCS: 71275; 93306; 93970; Q9967; C8929